=== PATIENT | female | born 1965 | race Two or more races ===

== ENCOUNTER 2024-01-31 19:37 | Emergency (ER) | payer MEDICAID, OTHER ==
[~2024-01-31] VITALS: Ht 152.4 cm; Wt 76.8 kg
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
[2024-01-31 20:59] VITALS: PULSE 69; RESP 18; TEMP 97.9; O2SAT 96
[2024-01-31] MEDS: KETOROLAC TROMETH 30 MG/ML 1ML VIAL IM ONE (21:02)
[2024-01-31] MEDS ORDERED: IBUP-1455 PO (22:12)
[2024-01-31] MEDS ORDERED: CYCL-837 PO (22:12)
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
[2024-01-31 23:12] VITALS: BP 123/59; PULSE 72; RESP 18; O2SAT 98
== END 2024-01-31 23:18 | disposition home or self-care (01) ==
LOC: ER 19:37
DX: S82.891A Other fracture of right lower leg, initial encounter for closed fracture (principal); S13.4XXA Sprain of ligaments of cervical spine, initial encounter; S20.219A Contusion of unspecified front wall of thorax, initial encounter; Z88.0 Allergy status to penicillin; V49.88XA Car occupant (driver) (passenger) injured in other specified transport accidents, initial encounter; Y93.I9 Activity, other involving external motion; Y92.488 Other paved roadways as the place of occurrence of the external cause; Y99.8 Other external cause status
CPT/HCPCS: 71045; 73562; 73610; 96372; 99284; J1885

== ENCOUNTER 2024-06-08 11:23 | Inpatient (IN) | payer MEDICAID ==
[~2024-06-08] VITALS: Ht 152.4 cm; Wt 86.3 kg
[~2024-06-08 11:23] MED LIST: CYCL-837 PO; IBUP-1455 PO
--- NOTE | 2024-06-08 11:51 | ED.PDOC ---
HPI Comments HPI: 59 year old female presents to the ED with chief complaint of chest pain. Patient reports that she has been experiencing left sided chest pain since yesterday, worsening today along with associated nausea, constant left arm numbness, and intermittent left leg numbness also since today. Patient relays that she started to feel her symptoms at 1042 today when walking her dog at home without a walker, normally needing one due to having chronic dizziness for the past 4 years when walking without a walker. Patient denies any SOB, weakness, headache, vomiting, or abdominal pain. Vitals: Temp: 98.7F BP: HR: RR: spO2: Past Medical History: Denies Past Surgical History: Abdominal cyst removal Social History: Denies cigarette, ETOH, or drug use. Allergies: Penicillins REVIEW OF SYSTEMS: CONSTITUTIONAL: Denies acute: fever, diaphoresis, chills, generalized weakness. HEAD: Denies acute: headache, photophobia Eyes: Denies acute: Double vision, vision loss, eye pain, eye discharge. EARS: Denies acute: tinnitus, hearing loss, ear discharge, ear pain, THROAT: Denies acute: sore throat, swelling, difficulty swallowing , pain with swallowing, change in voice. NECK: Denies acute: neck pain, neck swelling, stiff neck. HEART: Denies acute : , palpitations, LUNGS: Denies acute: SOB, wheezing, cough, hemoptysis ABDOMEN: Denies acute: abdominal pain, Nausea, Vomiting, diarrhea, melena , hematemesis, hematochezia SKIN: Denies acute: rash, redness, lesions, itchiness. EXTREMITIES: Denies acute: calf pain, weakness, denies pain in extremity. Denies acute: Low back pain. Neuro: Denies acute: focal neurological deficit, motor or sensory focal neurological deficit, tremors, seizure like activity, confusion, dizziness, change in mental status, loss of bowel or bladder function, cauda equina like symptoms. : Denies acute: dysuria, hematuria, flank pain, increase in urinary frequency. PSYCH: Denies acute: hallucination, suicidal ideation, homicidal ideation. FEMALE: Denies acute: abnormal vaginal bleeding, foul odor, unusual discharge. PHYSICAL EXAM: General: no acute distress, awake and alert. Head: normocephalic, atraumatic. Neck: supple, trachea is midline, no swelling. Throat: Normal phonation. Eyes:, no erythema, no purulent discharge, no proptosis, no icterus. Heart: regular rate, regular rhythm, no significant murmur appreciated. Lungs: no apparent respiratory distress, Able to speak in full sentences. No wheezing, no rhonchi, no crackles. No stridors Clear to auscultation bilaterally. Abdomen: non tender to palpation, non distended, soft, no guarding, no rebound, + bowel sounds. Neuro: Awake, Alert, oriented to name, self, situation, follows commands GCS=15. Speech is normal. Skin: no petechia, no purpura, no cyanosis, non-pale, not jaundice. Lower extremities: --no - Pitting edema no deformity, no focal swelling, no calf TTP. Makes eye contact. moves all four extremities. Face: no apparent facial droop. Ambulating in the ED independently. Stroke: finger to nose cerebellar testing is intact. No pronator drift. 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 No nystagmus. No nuchal rigidity, Kernig's sign, Brudzinski's sign, no meningeal signs. ED COURSE: Chief Complaint: Chest Pain Time Seen by MD: 11:47 Reviewed Notes: Nurses Notes, Medications, Allergies Allergies: Coded Allergies: Penicillins (Verified Allergy, Unknown, 01/31/24) Information Source: Patient Mode of Arrival: Ambulatory Was a procedure done? Was a procedure done?: No CP Differential Dx Differential Diagnosis: N/A Differential Diagnosis: N/A Differential Diagnosis: Other (Ddx include but not limitied to gastritis, musculoskeletal pain, radiculopathy, atypical chest pain, dissection, aneurysm, ACS, unstable angina, hiatal hernia, GERD, anxiety, costochondritis, PE, pneumothroax, neoplasm, cardiac ischemia, drug abuse, anemia.) X-Ray, Labs, Meds, VS Vital Signs Date Time Temp Pulse Resp B/P (MAP) Pulse Ox O2 Delivery O2 Flow Rate FiO2 06/08/24 12:35 143/71 06/08/24 12:24 71 06/08/24 12:20 71 Room Air* 0 21 06/08/24 12:20 98.2 71 17 143/71 (95) 97 98.2 06/08/24 11:52 98.7 77 17 148/83 (104) 97 98.7 06/08/24 11:31 84 Lab Test 06/08/24 12:28 06/08/24 11:36 Range/Units Troponin I High Sensitivity < 3 L < 3 L </=34 ng/L White Blood Count 5.5 4.4-10.8 10^3/uL Red Blood Count 4.29 4.0-5.20 10^6/uL Hemoglobin 14.1 12.2-16.2 g/dL Hematocrit 40.1 36.0-46.0 % Mean Corpuscular Volume 93.3 80.0-100.0 fL Mean Corpuscular Hemoglobin 32.7 H 28.0-32.0 pg Mean Corpuscular Hemoglobin Concent 35.1 32.0-36.0 g/dL Red Cell Distribution Width 12.5 11.8-14.3 % Platelet Count 228 140-450 10^3/uL Mean Platelet Volume 8.0 6.9-10.8 fL Neutrophils (%) (Auto) 58.9 37.0-80.0 % Lymphocytes (%) (Auto) 31.5 10.0-50.0 % Monocytes (%) (Auto) 7.1 0.0-12.0 % Eosinophils (%) (Auto) 1.4 0.0-7.0 % Basophils (%) (Auto) 1.1 0.0-2.0 % Neutrophils # (Auto) 3.2 1.6-8.6 10 ^3/uL Lymphocytes # (Auto) 1.7 0.4-5.4 10 ^3/uL Monocytes # (Auto) 0.4 0-1.3 10 ^3/uL Eosinophils # (Auto) 0.1 0-0.8 10 ^3/uL Basophils # (Auto) 0.1 0-0.2 10 ^3/uL Nucleated Red Blood Cells 0.0 % Sodium Level 138 136-145 mmol/L Potassium Level 4.0 3.5-5.1 mmol/L Chloride Level 103 98-107 mmol/L Carbon Dioxide Level 25 20-31 mmol/L Anion Gap 10 5-15 Blood Urea Nitrogen 11 9-23 mg/dL Creatinine 0.91 0.550-1.02 mg/dL Glomerular Filtration Rate Calc 72 >90 mL/min BUN/Creatinine Ratio 12.1 10.0-20.0 Serum Glucose 109 H 74-106 mg/dL Calcium Level 9.7 8.7-10.4 mg/dL Total Bilirubin 0.9 0.2-1.0 mg/dL Aspartate Amino Transferase (AST) 24 13-40 U/L Alanine Aminotransferase (ALT) 27 7-40 U/L Alkaline Phosphatase 77 46-116 U/L B-Type Natriuretic Peptide 14.72 0-100 pg/mL Total Protein 8.3 H 5.7-8.2 g/dL Albumin 4.6 3.2-4.8 g/dL Triglycerides Level 146 < 150 mg/dL Cholesterol Level 210 H < 200 mg/dL LDL Cholesterol 151 H < 100 mg/dL HDL Cholesterol 54 40-59 mg/dL Thyroid Stimulating Hormone (TSH) 1.96 0.55-4.78 uIU/mL Current Medications Medications (Trade) Dose Ordered Sig/Jaclyn Route Start Time Stop Time Status Last Admin Aspirin (Ecotrin Enteric Coated Tablet) 325 mg ONCE ONCE PO 06/08/24 11:45 06/08/24 11:46 DC 06/08/24 11:52 Nitroglycerin (Ntrostat Sublingual) 0.4 mg ONCE ONCE SL 06/08/24 12:30 06/08/24 12:31 DC 06/08/24 12:35 [place] [id number] Ph: [phone] DIAGNOSTIC IMAGING Diagnostic Imaging Report : [id number] Signed PATIENT: DEB RUBIOCT: [id number] UNIT: [id number] : 1965 LOC: ER ROOM / BED: / AGE / SEX: 59 / F ADM STATUS: REG ER SERVICE 1136 ORDERING PHYSICIAN: JENELLE AMOS DO PROCEDURE(s): CXRP - CHEST PORTABLE REASON: cp ORDER NUMBER(s): [id number], ACCESSION NUMBER(s): [id number] CHEST RADIOGRAPH Indication: cp Technique: Single frontal view of the chest was obtained COMPARISON: XY CHEST XRAY 1 VIEW on DOS: 01/31/24 FINDINGS: Lines and Tubes: None Lungs: Clear Pleura: No effusion. No pneumothorax. Cardiomediastinal contours: Unremarkable Bones: Unremarkable IMPRESSION: 1. No acute disease. ATED BY: MIHAELA CARTER MD DICTATED DATE/TIME: 06/08/241207 SIGNED BY: MIHAELA CARTER MD SIGNED DATE/TIME: 06/08/241207 CC: [place] [id number] Ph: [phone] DIAGNOSTIC IMAGING Diagnostic Imaging Report : [id number] Signed PATIENT: DEB RUBIOCT: [id number] UNIT: [id number] : 1965 LOC: ER ROOM / BED: / AGE / SEX: 59 / F ADM STATUS: REG ER SERVICE 1147 ORDERING PHYSICIAN: JENELLE AMOS DO PROCEDURE(s): HWOCT - HEAD WITHOUT CONTRAST REASON: dizziness ORDER NUMBER(s): [id number], ACCESSION NUMBER(s): [id number] EXAM: CT HEAD WITHOUT CONTRAST HISTORY: dizziness COMPARISON: None TECHNIQUE: Axial images were obtained and reformatted in coronal and sagittal planes. All CT scans at this medical facility are performed using dose modulation techniques as appropriate to a performed exam including the following: Automated exposure control was utilized; adjustment of the MA and/or KV according to patient size; and use of iterative reconstruction technique. CT Dose: CTDI volume is 54 mGy. Dose-length product is 864 mGy*cm FINDINGS: Supratentorial Region: No evidence for large acute territorial ischemia. No intracranial hemorrhage is noted. Posterior Fossa: No acute abnormality. Brainstem: Unremarkable. Sellar/Suprasellar Region: Unremarkable. Ventricles, Cisterns, Sulci: Age-appropriate. Orbits: Unremarkable. Paranasal Sinuses: Unremarkable. Mastoid Air Cells: Unremarkable. Vasculature: Unremarkable. Bones/Soft Tissues: No acute abnormality. Other: None. IMPRESSION: 1. No acute intracranial process. ATED BY: GAYATHRI LOPEZ MD DICTATED DATE/TIME: 06/08/24 1324 SIGNED BY: GAYATHRI LOPEZ MD SIGNED DATE/TIME: 06/08/24 1324 CC: Time of 1ST Reevaluation: 12:47 Reevaluation 1ST: Unchanged Time of 2ND Reevaluation: 17:36 Reevaluation 2ND: Resolved Patient Education/Counseling: Diagnosis, Treatment Family Education/Counseling: No Family Present Comments Patient presented with the above HPI.--cardiac---workup was initiated. patient was found with the above mentioned diagnosis. the following medications were ordered: please refer to order lists of meds and tests obtained by myself Dr. Amos. Patient ED course and VS have been stabilized. Patient has been reassessed in the ED and remained in a stable condition. Pertinent incidental findings were discussed with the patient and/or family. Patient/family voices understanding and is agreeable with plan. Patient has been observed in the ED adequate length of time to insure improvement/stability. Escalation of care considered: Consideration of escalation to observation or admission Patient was ADMITTED to the medicine team for further evaluation and treatment of their presentation. All the reports of any imaging studies that were ordered by myself were reviewed by myself. Departure 1 Departure Time of Disposition: 11:58 Impression: Primary Impression: Chest pain Disposition: ADMITTED INPATIENT Admit to: Tele Condition: Guarded Discharged With: Self Critical Care Note Critical Care Time?: No Heart Score Heart Score: Heart Score Response (Comments) Value History Moderate Suspicious 1 EKG Normal 0 Age 45-64 1 Risk Factors 1 or 2 risk factors 1 Troponin Normal limit 0 Total 3 I personally scribed for JENELLE AMOS DO ([email or web address]) on 06/08/24 at 11:51. Electronically submitted by Jacky Veliz ([email or web address]). I personally scribed for JENELLE AMOS DO ([email or web address]) on 06/08/24 at 11:58. Electronically submitted by Jacky Veliz ([email or web address]). I personally scribed for JENELLE AMOS DO ([email or web address]) on 06/08/24 at 13:27. Electronically submitted by Jacky Veliz ([email or web address]). I personally scribed for JENELLE AMOS DO ([email or web address]) on 06/08/24 at 13:27. Electronically submitted by Jacky Veliz ([email or web address]). JENELLE AMOS DO Jun 08, 2024 11:51
[2024-06-08] MEDS: ASPirin-EC 325mg tab PO ONE (11:52)
--- NOTE | 2024-06-08 12:10 | DVH ---
CHEST RADIOGRAPH Indication: cp Technique: Single frontal view of the chest was obtained COMPARISON: XY CHEST XRAY 1 VIEW on DOS: 01/31/24 FINDINGS: Lines and Tubes: None Lungs: Clear Pleura: No effusion. No pneumothorax. Cardiomediastinal contours: Unremarkable Bones: Unremarkable IMPRESSION: 1. No acute disease.
[2024-06-08 12:16] LABS: Basophils # (auto) 0.1 10 ^3/uL (0-0.2); Basophils % (auto) 1.1 % (0.0-2.0); Eosinophils # (auto) 0.1 10 ^3/uL (0-0.8); Eosinophils % (auto) 1.4 % (0.0-7.0); Hematocrit 40.1 % (36.0-46.0); Hemoglobin 14.1 g/dL (12.2-16.2); Lymphocytes # (auto) 1.7 10 ^3/uL (0.4-5.4); Lymphocytes % (auto) 31.5 % (10.0-50.0); Mean Corpuscular Hemoglobin 32.7 pg (28.0-32.0); Mean Corpuscular Hgb Conc. 35.1 g/dL (32.0-36.0); Mean Corpuscular Volume 93.3 fL (80.0-100.0); Monocytes # (auto) 0.4 10 ^3/uL (0-1.3); Monocytes % (auto) 7.1 % (0.0-12.0); Neutrophils # (auto) 3.2 10 ^3/uL (1.6-8.6); Neutrophils % (auto) 58.9 % (37.0-80.0); Platelet Count (auto) 228 10^3/uL (140-450); Red Blood Cells 4.29 10^6/uL (4.0-5.20); Red Cell Distribution Width 12.5 % (11.8-14.3); White Blood Cell 5.5 10^3/uL (4.4-10.8)
[2024-06-08 12:20] VITALS: PULSE 71
[2024-06-08 12:31] LABS: Alanine Aminotransferase 27 U/L (7-40); Albumin 4.6 g/dL (3.2-4.8); Alkaline Phosphatase 77 U/L (46-116); Anion Gap 10 (5-15); Aspartate Aminotransferase 24 U/L (13-40); BUN/Creatinine Ratio 12.1 (10.0-20.0); Bilirubin, Total 0.9 mg/dL (0.2-1.0); Blood Urea Nitrogen 11 mg/dL (9-23); Calcium 9.7 mg/dL (8.7-10.4); Carbon Dioxide 25 mmol/L (20-31); Chloride 103 mmol/L (98-107); Sodium 138 mmol/L (136-145)
[2024-06-08] MEDS: NITROGLYCERIN 0.4 MG SL TAB SL ONE (12:35)
[2024-06-08 12:37] LABS: Glucose 109 mg/dL (74-106); Total Protein 8.3 g/dL (5.7-8.2)
--- NOTE | 2024-06-08 13:26 | DVH ---
EXAM: CT HEAD WITHOUT CONTRAST HISTORY: dizziness COMPARISON: None TECHNIQUE: Axial images were obtained and reformatted in coronal and sagittal planes. All CT scans at this medical facility are performed using dose modulation techniques as appropriate t o a performed exam including the following: Automated exposure control was utilized; adjustment of th e MA and/or KV according to patient size; and use of iterative reconstruction technique. CT Dose: CTDI volume is 54 mGy. Dose-length product is 864 mGy*cm FINDINGS: Supratentorial Region: No evidence for large acute territorial ischemia. No intracranial hemorrhage is noted. Posterior Fossa: No acute abnormality. Brainstem: Unremarkable. Sellar/Suprasellar Region: Unremarkable. Ventricles, Cisterns, Sulci: Age-appropriate. Orbits: Unremarkable. Paranasal Sinuses: Unremarkable. Mastoid Air Cells: Unremarkable. Vasculature: Unremarkable. Bones/Soft Tissues: No acute abnormality. Other: None. IMPRESSION: 1. No acute intracranial process.
[2024-06-08] MEDS ORDERED: ACETAMINOPHEN 325 MG TAB PO PRN (13:30)
[2024-06-08] MEDS ORDERED: NITROGLYCERIN 0.4 MG SL TAB SL PRN (13:30)
[2024-06-08] MEDS ORDERED: HYDROcodone-ACET 5/325MG TAB PO PRN (13:30)
[2024-06-08] MEDS ORDERED: ONDANSETRON HCL 4 MG/2 ML VIAL IV PRN (13:30)
[2024-06-08] MEDS ORDERED: MORPHINE SULFATE INJ 2 MG/ml SYRG IV PRN (13:30)
--- NOTE | 2024-06-08 14:08 | DVH ---
Bilateral lower extremity venous duplex Clinical History: r/o dvt Comparison: None Technique: Duplex Doppler evaluation of the deep venous systems of both lower extremities from the common femora l veins to the popliteal veins including color Doppler and spectral/pulsed waveform analysis was perf ormed. Findings: RIGHT SIDE: The common femoral vein demonstrates appropriate compressibility and waveform variability. There is compressibility/patency of the great saphenous vein at the proximal thigh. The femoral vein demonstrates appropriate compressibility and waveform variability. The deep femoral vein demonstrates appropriate compressibility and waveform variability. The popliteal vein demonstrates appropriate compressibility and waveform variability. There is normal compressibility at the tibioperoneal trunk. LEFT SIDE: The common femoral vein demonstrates appropriate compressibility and waveform variability. There is compressibility/patency of the great saphenous vein at the proximal thigh. The femoral vein demonstrates appropriate compressibility and waveform variability. The deep femoral vein demonstrates appropriate compressibility and waveform variability. The popliteal vein demonstrates appropriate compressibility and waveform variability. There is normal compressibility at the tibioperoneal trunk. Impression: 1. No right or left femoropopliteal venous thrombosis.
--- NOTE | 2024-06-08 14:22 | DVHHP2 ---
History of Present Illness Reason for Visit: Chest pain History of Present Illness Carlos Hardy is a 59-year-old female with past medical history of gastritis, arthritis, fibromyalgia, chronic dizziness, and abdominal cyst removal who presents to the ED with chest pain that is radiating down her left arm patient also states that it radiates down her left leg causing some numbness. She also reports nausea. She states her pain is 3/10 feels tight and it is intermittent in nature. Patient denies any recent sick contacts any shortness of breath, fever, chills, recent trauma or injury, lightheadedness, vomiting, and diarrhea. Upon examination patient using a Rollator with ambulation. GI: Gastritis Past Medical History Arthritis Fibromyalgia Past Surgical History: Other (Abdominal cyst removal) Family History: None Smoke: No ALCOHOL: none Drugs: None Lives: with Family Domestic Violence: Neg Review of Systems Cardiovascular: Chest Pain Gastrointestinal: Nausea Musculoskeletal: arm pain, leg pain Allergies: Coded Allergies: Penicillins (Verified Allergy, Unknown, 01/31/24) Medications Current Medications Medications Dose Ordered Sig/Jaclyn Route Start Time Stop Time Status Last Admin Dose Admin Acetaminophen/ Hydrocodone Bitart 1 tab Q4HP PRN PO 06/08/24 13:30 UNV Ondansetron HCl 4 mg Q4HP PRN IV 06/08/24 13:30 UNV Enoxaparin Sodium 30 mg DAILY SC 06/09/24 10:00 UNV Acetaminophen 650 mg Q6HP PRN PO 06/08/24 13:30 UNV Nitroglycerin 0.4 mg Q5MINP PRN SL 06/08/24 13:30 UNV Morphine Sulfate 2 mg Q30M PRN IV 06/08/24 13:30 UNV Exam Vital Signs Vital Signs Date Time Temp Pulse Resp B/P (MAP) Pulse Ox O2 Delivery O2 Flow Rate FiO2 06/08/24 12:35 143/71 06/08/24 12:24 71 06/08/24 12:20 Room Air* 0 21 06/08/24 12:20 98.2 17 97 98.2 General Appearance: Alert, Oriented X3, Cooperative, No acute distress HEENT: Atraumatic, PERRLA, EOMI, Mucous membr. moist/pink Respiratory: Clear to auscultation, Normal air movement Cardiovascular: Regular rate, Normal S1, Normal S2, No murmurs Abdominal: Normal bowel sounds, Soft, No tenderness, No hepatospenomegaly, No masses Extremities: No cyanosis, No edema, Normal pulses Skin: No significant lesion Neuro: Normal speech, Normal tone, Sensation intact Psych/Mental Status: Mental status NL, Mood NL Labs/Xrays Labs Test 06/08/24 12:28 06/08/24 11:36 Range/Units Troponin I High Sensitivity < 3 L </=34 ng/L White Blood Count 5.5 4.4-10.8 10^3/uL Red Blood Count 4.29 4.0-5.20 10^6/uL Hemoglobin 14.1 12.2-16.2 g/dL Hematocrit 40.1 36.0-46.0 % Mean Corpuscular Volume 93.3 80.0-100.0 fL Mean Corpuscular Hemoglobin 32.7 H 28.0-32.0 pg Mean Corpuscular Hemoglobin Concent 35.1 32.0-36.0 g/dL Red Cell Distribution Width 12.5 11.8-14.3 % Platelet Count 228 140-450 10^3/uL Mean Platelet Volume 8.0 6.9-10.8 fL Neutrophils (%) (Auto) 58.9 37.0-80.0 % Lymphocytes (%) (Auto) 31.5 10.0-50.0 % Monocytes (%) (Auto) 7.1 0.0-12.0 % Eosinophils (%) (Auto) 1.4 0.0-7.0 % Basophils (%) (Auto) 1.1 0.0-2.0 % Neutrophils # (Auto) 3.2 1.6-8.6 10 ^3/uL Lymphocytes # (Auto) 1.7 0.4-5.4 10 ^3/uL Monocytes # (Auto) 0.4 0-1.3 10 ^3/uL Eosinophils # (Auto) 0.1 0-0.8 10 ^3/uL Basophils # (Auto) 0.1 0-0.2 10 ^3/uL Nucleated Red Blood Cells 0.0 % Sodium Level 138 136-145 mmol/L Potassium Level 4.0 3.5-5.1 mmol/L Chloride Level 103 98-107 mmol/L Carbon Dioxide Level 25 20-31 mmol/L Anion Gap 10 5-15 Blood Urea Nitrogen 11 9-23 mg/dL Creatinine 0.91 0.550-1.02 mg/dL Glomerular Filtration Rate Calc 72 >90 mL/min BUN/Creatinine Ratio 12.1 10.0-20.0 Serum Glucose 109 H 74-106 mg/dL Calcium Level 9.7 8.7-10.4 mg/dL Total Bilirubin 0.9 0.2-1.0 mg/dL Aspartate Amino Transferase (AST) 24 13-40 U/L Alanine Aminotransferase (ALT) 27 7-40 U/L Alkaline Phosphatase 77 46-116 U/L B-Type Natriuretic Peptide 14.72 0-100 pg/mL Total Protein 8.3 H 5.7-8.2 g/dL Albumin 4.6 3.2-4.8 g/dL CHEST RADIOGRAPH Indication: cp Technique: Single frontal view of the chest was obtained COMPARISON: XY CHEST XRAY 1 VIEW on DOS: 01/31/24 FINDINGS: Lines and Tubes: None Lungs: Clear Pleura: No effusion. No pneumothorax. Cardiomediastinal contours: Unremarkable Bones: Unremarkable IMPRESSION: 1. No acute disease. EXAM: CT HEAD WITHOUT CONTRAST HISTORY: dizziness COMPARISON: None TECHNIQUE: Axial images were obtained and reformatted in coronal and sagittal planes. All CT scans at this medical facility are performed using dose modulation techniques as appropriate to a performed exam including the following: Automated exposure control was utilized; adjustment of the MA and/or KV according to patient size; and use of iterative reconstruction technique. CT Dose: CTDI volume is 54 mGy. Dose-length product is 864 mGy*cm FINDINGS: Supratentorial Region: No evidence for large acute territorial ischemia. No intracranial hemorrhage is noted. Posterior Fossa: No acute abnormality. Brainstem: Unremarkable. Sellar/Suprasellar Region: Unremarkable. Ventricles, Cisterns, Sulci: Age-appropriate. Orbits: Unremarkable. Paranasal Sinuses: Unremarkable. Mastoid Air Cells: Unremarkable. Vasculature: Unremarkable. Bones/Soft Tissues: No acute abnormality. Other: None. IMPRESSION: 1. No acute intracranial process. Bilateral lower extremity venous duplex Clinical History: r/o dvt Comparison: None Technique: Duplex Doppler evaluation of the deep venous systems of both lower extremities from the common femoral veins to the popliteal veins including color Doppler and spectral/pulsed waveform analysis was performed. Findings: RIGHT SIDE: The common femoral vein demonstrates appropriate compressibility and waveform variability. There is compressibility/patency of the great saphenous vein at the proximal thigh. The femoral vein demonstrates appropriate compressibility and waveform variability. The deep femoral vein demonstrates appropriate compressibility and waveform variability. The popliteal vein demonstrates appropriate compressibility and waveform variability. There is normal compressibility at the tibioperoneal trunk. LEFT SIDE: The common femoral vein demonstrates appropriate compressibility and waveform variability. There is compressibility/patency of the great saphenous vein at the proximal thigh. The femoral vein demonstrates appropriate compressibility and waveform variability. The deep femoral vein demonstrates appropriate compressibility and waveform variability. The popliteal vein demonstrates appropriate compressibility and waveform variability. There is normal compressibility at the tibioperoneal trunk. Impression: 1. No right or left femoropopliteal venous thrombosis. Assessment/Plan Assessment/Plan Assessment Chest pain History of gastritis History of arthritis History of fibromyalgia History abdominal cyst removal History of chronic dizziness Plan Admit to tele EKG Tried nitro given ED Aspirin given ED CT head noted Chest x-ray noted BNP Troponin negative UA UDS TSH A1c Lipid panel Echo ordered Bilateral lower extremity venous ordered ACS workup ACS protocol Diet PPIs Patient reports she takes no home medications Discussed plan of care with patient and nurse DVT prophylaxis -Lovenox Plan discussed with: Patient My Orders Orders - RASHAD SWAN HEALTH ASSISTANT Procedure Category Date Status Time Bilat Lower Dvt US 06/08/24 Logged 13:27 Admit ADMIT 06/08/24 Transmitted 13:27 Allergies SARA 06/08/24 In Process 13:27 Code Status CODE 06/08/24 Transmitted 13:27 Hydrocodone-Acet PHA 06/08/24 Logged 5/325mg Tab ([place] 13:30 Ondansetron Hcl PHA 06/08/24 Logged (Zofran) 13:30 Complete Blood Count LAB 06/09/24 Verified 04:00 Comprehensive LAB 06/09/24 Verified Metabolic Panel 04:00 Cardiac DIET 06/08/24 Transmitted Diet-2gna,Lofat,Lochol Lunch Echo 2d Mode Cardiac US 06/08/24 Logged DOP 13:27 Enoxaparin Sodium PHA 06/09/24 Logged (Lovenox) 10:00 Acetaminophen Tablet PHA 06/08/24 Logged (Tylenol Tablet) 13:30 Nitroglycerin PHA 06/08/24 Logged Sublingual (Ntrostat 13:30 Morphine Sulfate PHA 06/08/24 Logged Injection 13:30 Stat Ekg For Chest [facility] 06/08/24 In Process Pain 13:27 Notify Md Of Changes [facility] 06/08/24 In Process From Base 13:27 Plating Stripper For [facility] 06/08/24 In Process 24 Hours 13:27 Emergency Dysrhythmia [facility] 06/08/24 In Process Protocol 13:27 Rhythm Strips Once SARA 06/08/24 In Process Every Shift 13:27 Oxygen By Nasal RT 06/08/24 Transmitted Cannula 13:27 Thyroid Stimulating LAB 06/08/24 Logged Hormone 13:27 Urinalysis LAB 06/08/24 Logged 13:27 Drug Screen LAB 06/08/24 Logged 13:27 Hemoglobin A1c LAB 06/08/24 Logged 13:27 Lipid Panel LAB 06/08/24 Logged 13:36 Date of Service: Jun 08, 2024 Billing Provider: RASHAD SWAN Common Visit Codes: [id number] INP/OBS CARE (HIGH) RASHAD SWAN Jun 08, 2024 14:22
[2024-06-08 14:40] LABS: Triglycerides 146 mg/dL (< 150)
[2024-06-08 14:42] LABS: HDL Cholesterol 54 mg/dL (40-59)
[2024-06-08 14:46] LABS: Cholesterol 210 mg/dL (< 200); LDL Cholesterol 151 mg/dL (< 100)
[2024-06-08 18:40] VITALS: PULSE 62; RESP 18; O2SAT 97
[2024-06-08 19:47] LABS: Urine Bacteria None Seen /hpf (None Seen)
[2024-06-08 20:00] VITALS: PULSE 60; RESP 14; O2SAT 96
[2024-06-08 20:05] LABS: Urine Blood 2+ /uL (Negative); Urine Clarity Clear (Clear); Urine Color Yellow (Yellow); Urine Mucus FEW (None Seen); Urine Protein, UAD Negative (Negative); Urine Specific Gravity 1.023 (1.001-1.035); Urine Squamous Epithelial Cell None Seen /hpf (<5); Urine Urobilinogen Normal (Negative); Urine WBC 4 /HPF (0-5); Urine pH 5.5 (5.0-9.0)
[2024-06-08 20:06] LABS: Amphetamine Screen, Urine Neg (NEGATIVE); Barbiturate Scree,Urine Neg (NEGATIVE); Benzodiazephine Screen, Urine Neg (NEGATIVE); Cannabinoid Screen, Urine Neg (NEGATIVE); Cocaine Screen, Urine Neg (NEGATIVE); Opiate Scree,Urine Neg (NEGATIVE); Phencyclidine Screen, Urine Neg (NEGATIVE)
[2024-06-08 21:00] VITALS: BP 129/71; PULSE 63; RESP 12; TEMP 98.2; O2SAT 96
[2024-06-08] MEDS: ATORVASTATIN 20 MG TAB PO SCH (21:28)
[2024-06-09] VITALS (8 sets, daily range): BP systolic 117–137; BP diastolic 52–76; PULSE 55–73; RESP 15–20; TEMP 97.3–98.1; O2SAT 95–98
--- NOTE | 2024-06-09 06:20 | ECG ---
[facility] Test Date: 2024-06-08 Test Time: 12:24:06 Pat Name: SAMANTHA RUBIO Department: ED Room: 0246T B Gender: F Administration Manager: DOUGLAS : 1965 Requested By: EMERGENCY EMERGENCY Order Number: [id number] Reading MD: Tony Cespedes Measurements Intervals [place] Rate: 71 P: 38 RI: 151 QRS: 64 QRSD: 85 T: 33 QT: 402 QTc: 437 Interpretive Statements Sinus rhythm Electronically Signed On 06-09-2024 19:20:04 PDT by Tony Cespedes Please click the below link to view image of tracing.
[2024-06-09 07:25] LABS: Basophils # (auto) 0 10 ^3/uL (0-0.2); Basophils % (auto) 0.9 % (0.0-2.0); Eosinophils # (auto) 0.1 10 ^3/uL (0-0.8); Eosinophils % (auto) 2.7 % (0.0-7.0); Hematocrit 39.2 % (36.0-46.0); Hemoglobin 13.3 g/dL (12.2-16.2); Lymphocytes # (auto) 1.5 10 ^3/uL (0.4-5.4); Lymphocytes % (auto) 28.7 % (10.0-50.0); Mean Corpuscular Hemoglobin 31.8 pg (28.0-32.0); Mean Corpuscular Volume 93.6 fL (80.0-100.0); Monocytes # (auto) 0.5 10 ^3/uL (0-1.3); Neutrophils % (auto) 58.7 % (37.0-80.0); Nucleated Red Blood Cells % 0.1 %; Platelet Count (auto) 204 10^3/uL (140-450); Red Blood Cells 4.19 10^6/uL (4.0-5.20); Red Cell Distribution Width 12.2 % (11.8-14.3); White Blood Cell 5.2 10^3/uL (4.4-10.8)
--- NOTE | 2024-06-09 07:38 | ECG ---
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
[2024-06-09 07:48] LABS: Alanine Aminotransferase 22 U/L (7-40); Albumin 4.2 g/dL (3.2-4.8); Alkaline Phosphatase 65 U/L (46-116); Anion Gap 9 (5-15); Aspartate Aminotransferase 21 U/L (13-40); BUN/Creatinine Ratio 13.9 (10.0-20.0); Bilirubin, Total 0.8 mg/dL (0.2-1.0); Blood Urea Nitrogen 11 mg/dL (9-23); Calcium 9.5 mg/dL (8.7-10.4); Carbon Dioxide 25 mmol/L (20-31); Chloride 105 mmol/L (98-107); Potassium 4.2 mmol/L (3.5-5.1); Sodium 139 mmol/L (136-145); Total Protein 7.4 g/dL (5.7-8.2)
[2024-06-09 07:49] LABS: Glucose 120 mg/dL (74-106)
[2024-06-09] MEDS: PANTOPRAZOLE 40 MG/10 ML VIAL INJ IV SCH (10:45)
[2024-06-09] MEDS: ENOXAPARIN SOD 40 MG/0.4 ML SYRINGE SC SCH (10:47)
[2024-06-09] MEDS: ASPirin-EC 81 mg tab PO SCH (10:47)
--- NOTE | 2024-06-09 12:55 | DVHPN2 ---
Reviewed: Care Plan, H&P, Labs, Medications, Previous Orders, Radiology Changes from previous H/P or p: No Changes Cardiovascular: Chest Pain Gastrointestinal: Nausea Musculoskeletal: arm pain, leg pain Objective Vitals Vital Signs Date Time Temp Pulse Resp B/P (MAP) Pulse Ox O2 Delivery O2 Flow Rate FiO2 06/09/24 12:17 98.0 63 19 117/60 (79) 98 98.0 06/08/24 20:00 Room Air* 0 21 Intake/Output Intake and Output 06/09/24 07:00 Intake Total 985 ml Output Total 600 ml Balance 385 ml Intake Oral 985 ml Output Urine Total 600 ml # Voids 3 Medications Current Medications Medications Dose Ordered Sig/Jaclyn Route Start Time Stop Time Status Last Admin Dose Admin Acetaminophen/ Hydrocodone Bitart 1 tab Q4HP PRN PO 06/08/24 13:30 Ondansetron HCl 4 mg Q4HP PRN IV 06/08/24 13:30 Enoxaparin Sodium 40 mg DAILY SC 06/09/24 10:00 06/09/24 10:47 40 MG Acetaminophen 650 mg Q6HP PRN PO 06/08/24 13:30 Nitroglycerin 0.4 mg Q5MINP PRN SL 06/08/24 13:30 Morphine Sulfate 2 mg Q30M PRN IV 06/08/24 13:30 Pantoprazole Sodium 40 mg DAILY IV 06/09/24 10:00 06/09/24 10:45 40 MG Aspirin 81 mg DAILY PO 06/09/24 10:00 06/09/24 10:47 81 MG Atorvastatin Calcium 40 mg HS PO 06/08/24 22:00 06/08/24 21:28 40 MG Laboratory Results Laboratory Tests 06/09/24 06:46 Chemistry Test 06/09/24 06:46 Albumin 4.2 g/dL (3.2-4.8) Calcium Level 9.5 mg/dL (8.7-10.4) Total Protein 7.4 g/dL (5.7-8.2) LFT Test 06/09/24 06:46 Alanine Aminotransferase (ALT) 22 U/L (7-40) Alkaline Phosphatase 65 U/L (46-116) Aspartate Amino Transferase (AST) 21 U/L (13-40) Total Bilirubin 0.8 mg/dL (0.2-1.0) HgA1c, TSH Test 06/08/24 16:48 Hemoglobin A1c 5.3 % A1C (<5.7) Urinalysis Test 06/08/24 19:40 Urine Color Yellow (Yellow) Urine Clarity Clear (Clear) Urine pH 5.5 (5.0-9.0) Urine Specific [place] 1.023 (1.001-1.035) Urine Protein Negative (Negative) Urine Ketones Negative (Negative) Urine Blood 2+ /uL (Negative) H Urine Nitrite Negative (Negative) Urine Bilirubin Negative (Negative) Urine Urobilinogen Normal mg/dL (Negative) Urine Leukocyte Esterase 1+ /uL (Negative) Urine RBC 8 /hpf (0 - 4) Urine Microscopic WBC 4 /HPF (0-5) Urine Squamous Epithelial Cells None seen /hpf (<5) Urine Bacteria None seen /hpf (None Seen) Urine Mucus Few (None Seen) Urine Glucose Normal mg/dL (Normal) Labs and/or images reviewed: Labs reviewed by me, Image(s) reviewed by me Assessment/Plan Assessment/Plan Chest pain troponin negative x3, probably noncardiac chest pain, cardiology consult for Dr. Ramos, aspirin Lipitor History of gastritis History of arthritis History of fibromyalgia Chest x-ray negative CT head negative DVT ruled out Plan discussed with: Patient Date of Service: Jun 09, 2024 Billing Provider: SAM GALINDO MD Common Visit Codes: [id number] INP/OBS CARE(HIGH) SAM GALINDO MD Jun 09, 2024 12:55
--- NOTE | 2024-06-09 20:16 | DVHSR ---
APPROVED REPORT EXAM: Two-dimensional and M-mode echocardiogram with Doppler and color Doppler. Blood Pressure: 123/66 mmHg INDICATION Chest Pain RISK FACTORS Height: 5'0", Weight: 181 DIMENSIONS LVDd4.0 (3.8-5.7cm)LA (2D)4.0 (1.9-4.0cm)Aortic Root2.9 (2.0-3.7cm) LVDs2.6 (2.5-4.0cm)LA (MM) (1.9-4.0cm)Aortic Cusp Exc1.7 (1.5-2.0cm) EF (%) 60.0 (55-70%)Rt. Atrium3.9 (1.9-4.0cm)Asc. Aorta cm IVSd1.2 (0.7-1.1cm)RV (D) (1.8-2.4cm) PWd1.0 (0.7-1.1cm) Mitral Valve MitralMitral Stenosis E wave0.83m/sMV Mean GR.mmHg A wave0.83m/sMV Peak GR.mmHg E/A ratio1.02D MVAcm2 DECEL [id number] 1/2 Timems Aortic Valve Aortic ValveAortic Stenosis V11.12m/Nisreen Mean GR.5mmHg V21.57m/Nisreen Peak GR.10mmHg LVOT Diameter1.9 (1.8-2.4cm)Doppler AVA2.02cm2 Pulmonic Valve V21.14m/s Tricuspid Valve TR Velocity2.58m/s [id number] Other Information Technically limited study due to body habitus and patient position. Conclusion LV EJECTION FRACTION IS 65% AORTIC SCLEROSIS NORMAL MV,TV,PV NORMAL RV FUNCTION NO EFFUSION NORMAL RVSP IS 30 MM OF HG AND IS NORMAL
[2024-06-10] VITALS (8 sets, daily range): BP systolic 118–141; BP diastolic 61–73; PULSE 58–73; RESP 17–20; TEMP 97.5–98.7; O2SAT 96–98
--- NOTE | 2024-06-10 09:38 | DVHINCON2 ---
Date of service: Jun 10, 2024 Reason for Consultation Acute vaginal pain History of Present Illness HPI 59y x 4. Admitted for non specific chest pain. Endorses acute vaginal pain x 1 day Denies vaginal bleeding, vaginal discharge. Denies "bulge" or prolapse symptoms Endorse chronic urinary incontinence and fecal incontinence. Denies any abnormal pap smears, last pap states was normal 2 yr ago. Patient is not sexually active x 2 years, but is , monogamous. No hx of STI Endorse "dryness" and occasional pruritis in vulva / vagina without discharge Pain is suprapubic and worse w/ movement x 24 hr. Patient is concerned because has "ovarian cyst" in 1984 that was removed Denies any family hx of ovarian, uterine, breast cancers. Past Medical History Patient Family History: Diabetes mellitus G8 MOTHER FH: hypertension Review of Systems Constitutional: No symptom reported Ears, Nose, & Throat: No symptom reported Eyes: No symptom reported Pulmonary/Respiratory: No symptom reported Cardiovascular: Chest Pain Gastrointestinal: No symptom reported Genitourinary: Incontinence, Retention, Pain Musculoskeletal: No symptom reported Skin: No symptom reported Psychiatric: No symptom reported Endocrine: No symptom reported Hemotologic/Lymphatic: No symptom reported H&P Exam Vital Signs Vital Signs Date Time Temp Pulse Resp B/P (MAP) Pulse Ox O2 Delivery O2 Flow Rate FiO2 06/10/24 05:00 98.1 66 17 128/65 (86) 96 98.1 06/09/24 20:00 Room Air* 0 21 General Appeara: Well developed, Well nourished, Normal Appearance Head Exam: Normal inspection Eye Exam: bilateral eye PERRL Cardiovascular/Chest: Normal inspection Abdominal Exam: Normal bowel sounds, Soft, No tenderness Rectal Exam: Deferred Pelvic Exam: External exam normal, Bimanual exam normal (no bleeding, no masses, no discharge noted, mild atrophy, grade 2 cystocele noted. no leak w/ valsalva ) TRANSPLANT RN Exam: Normal hearing, Normal speech, PERRL Appearance: Appropriate appearance, Appropriate insight Labs/Xrays Labs Test 06/09/24 06:46 06/08/24 19:40 06/08/24 16:48 06/08/24 15:21 Range/Units White Blood Count 5.2 4.4-10.8 10^3/uL Red Blood Count 4.19 4.0-5.20 10^6/uL Hemoglobin 13.3 12.2-16.2 g/dL Hematocrit 39.2 36.0-46.0 % Mean Corpuscular Volume 93.6 80.0-100.0 fL Mean Corpuscular Hemoglobin 31.8 28.0-32.0 pg Mean Corpuscular Hemoglobin Concent 34.0 32.0-36.0 g/dL Red Cell Distribution Width 12.2 11.8-14.3 % Platelet Count 204 140-450 10^3/uL Mean Platelet Volume 7.9 6.9-10.8 fL Neutrophils (%) (Auto) 58.7 37.0-80.0 % Lymphocytes (%) (Auto) 28.7 10.0-50.0 % Monocytes (%) (Auto) 9.0 0.0-12.0 % Eosinophils (%) (Auto) 2.7 0.0-7.0 % Basophils (%) (Auto) 0.9 0.0-2.0 % Neutrophils # (Auto) 3.0 1.6-8.6 10 ^3/uL Lymphocytes # (Auto) 1.5 0.4-5.4 10 ^3/uL Monocytes # (Auto) 0.5 0-1.3 10 ^3/uL Eosinophils # (Auto) 0.1 0-0.8 10 ^3/uL Basophils # (Auto) 0 0-0.2 10 ^3/uL Nucleated Red Blood Cells 0.1 % Sodium Level 139 136-145 mmol/L Potassium Level 4.2 3.5-5.1 mmol/L Chloride Level 105 98-107 mmol/L Carbon Dioxide Level 25 20-31 mmol/L Anion Gap 9 5-15 Blood Urea Nitrogen 11 9-23 mg/dL Creatinine 0.79 0.550-1.02 mg/dL Glomerular Filtration Rate Calc 85 >90 mL/min BUN/Creatinine Ratio 13.9 10.0-20.0 Serum Glucose 120 H 74-106 mg/dL Calcium Level 9.5 8.7-10.4 mg/dL Total Bilirubin 0.8 0.2-1.0 mg/dL Aspartate Amino Transferase (AST) 21 13-40 U/L Alanine Aminotransferase (ALT) 22 7-40 U/L Alkaline Phosphatase 65 46-116 U/L Total Protein 7.4 5.7-8.2 g/dL Albumin 4.2 3.2-4.8 g/dL Urine Color Yellow Yellow Urine Clarity Clear Clear Urine pH 5.5 5.0-9.0 Urine Specific [place] 1.023 1.001-1.035 Urine Protein Negative Negative Urine Ketones Negative Negative Urine Blood 2+ H Negative /uL Urine Nitrite Negative Negative Urine Bilirubin Negative Negative Urine Urobilinogen Normal Negative mg/dL Urine Leukocyte Esterase 1+ Negative /uL Urine RBC 8 0 - 4 /hpf Urine Microscopic WBC 4 0-5 /HPF Urine Squamous Epithelial Cells None seen <5 /hpf Urine Bacteria None seen None Seen /hpf Urine Mucus Few None Seen Urine Glucose Normal Normal mg/dL Urine Opiates Screen Neg NEGATIVE Urine Fentanyl Screen Neg NEGATIVE Urine Barbiturates Screen Neg NEGATIVE Urine Phencyclidine Screen Neg NEGATIVE Urine Amphetamines Screen Neg NEGATIVE Urine Benzodiazepines Screen Neg NEGATIVE Urine Cocaine Screen Neg NEGATIVE Urine Cannabinoids Screen Neg NEGATIVE Hemoglobin A1c 5.3 <5.7 % A1C Troponin I High Sensitivity < 3 L </=34 ng/L Test 06/08/24 11:36 Range/Units B-Type Natriuretic Peptide 14.72 0-100 pg/mL Triglycerides Level 146 < 150 mg/dL Cholesterol Level 210 H < 200 mg/dL LDL Cholesterol 151 H < 100 mg/dL HDL Cholesterol 54 40-59 mg/dL Thyroid Stimulating Hormone (TSH) 1.96 0.55-4.78 uIU/mL Assessment/Plan Admitting Diagnosis: Acute vaginal and suprapubic pain - Suspect cystitis (2+ blood on UA) Grade 2 Cystocele Hx of Urinary incontinence Plan No acute jewelry sorter intervention indicated at this time Recommend Pelvic US and UAC&S at this time to rule out other causes of pelvic pain and probable acute cystitis Grade 2 cystocele with mixed urinary incontinence, refer to UroGYN as outpatient for eval and treatment PRECISION LENS TECHNICIAN will sign off Plan discussed with: Patient Date of Service: Jun 10, 2024 Billing Provider: KARY TINOCO DO Common Visit Codes: CONSULT ONLY Consultation Codes: [id number] CONSULT <60MIN KARY TINOCO DO Jun 10, 2024 09:38
--- NOTE | 2024-06-10 10:02 | DVHPN2 ---
Reviewed: Care Plan, H&P, Labs, Medications, Previous Orders, Radiology Changes from previous H/P or p: No Changes Cardiovascular: Chest Pain Gastrointestinal: Nausea Musculoskeletal: arm pain, leg pain Objective Vitals Vital Signs Date Time Temp Pulse Resp B/P (MAP) Pulse Ox O2 Delivery O2 Flow Rate FiO2 06/10/24 05:00 98.1 66 17 128/65 (86) 96 98.1 06/09/24 20:00 Room Air* 0 21 Intake/Output Intake and Output 06/10/24 07:00 Intake Total 3850 ml Output Total 1000 ml Balance 2850 ml Intake Oral 3850 ml Output Urine Total 1000 ml # Voids 3 # Bowel Movements 1 Medications Current Medications Medications Dose Ordered Sig/Jaclyn Route Start Time Stop Time Status Last Admin Dose Admin Acetaminophen/ Hydrocodone Bitart 1 tab Q4HP PRN PO 06/08/24 13:30 Ondansetron HCl 4 mg Q4HP PRN IV 06/08/24 13:30 Enoxaparin Sodium 40 mg DAILY SC 06/09/24 10:00 06/09/24 10:47 40 MG Acetaminophen 650 mg Q6HP PRN PO 06/08/24 13:30 Nitroglycerin 0.4 mg Q5MINP PRN SL 06/08/24 13:30 Morphine Sulfate 2 mg Q30M PRN IV 06/08/24 13:30 Pantoprazole Sodium 40 mg DAILY IV 06/09/24 10:00 06/09/24 10:45 40 MG Aspirin 81 mg DAILY PO 06/09/24 10:00 06/09/24 10:47 81 MG Atorvastatin Calcium 40 mg HS PO 06/08/24 22:00 06/09/24 22:29 40 MG Laboratory Results Laboratory Tests 06/09/24 06:46 Urinalysis Test 06/08/24 19:40 Urine Color Yellow (Yellow) Urine Clarity Clear (Clear) Urine pH 5.5 (5.0-9.0) Urine Specific [place] 1.023 (1.001-1.035) Urine Protein Negative (Negative) Urine Ketones Negative (Negative) Urine Blood 2+ /uL (Negative) H Urine Nitrite Negative (Negative) Urine Bilirubin Negative (Negative) Urine Urobilinogen Normal mg/dL (Negative) Urine Leukocyte Esterase 1+ /uL (Negative) Urine RBC 8 /hpf (0 - 4) Urine Microscopic WBC 4 /HPF (0-5) Urine Squamous Epithelial Cells None seen /hpf (<5) Urine Bacteria None seen /hpf (None Seen) Urine Mucus Few (None Seen) Urine Glucose Normal mg/dL (Normal) Labs and/or images reviewed: Labs reviewed by me, Image(s) reviewed by me Assessment/Plan Assessment/Plan Chest pain troponin negative x3, probably noncardiac chest pain, cardiology consult for Dr. Ramos, aspirin Lipitor History of gastritis History of arthritis History of fibromyalgia Acute vaginal suprapubic pain secondary to possible UTI and grade 2 cystocele ,ship's surveyor consult appreciated History of urinary incontinence Chest x-ray negative CT head negative DVT ruled out Plan discussed with: Patient My Orders Orders - SAM GALINDO MD Procedure Category Date Status Time * [facility] Education Coordinator Consultation CONS 06/09/24 Transmitted 18:23 Date of Service: Jun 10, 2024 Billing Provider: SAM GALINDO MD Common Visit Codes: [id number] INP/OBS CARE(HIGH) SAM GALINDO MD Jun 10, 2024 10:02
--- NOTE | 2024-06-10 10:26 | DVH ---
INDICATION: Acute pelvic pain, history of ovarian cysts TECHNIQUE: Multiple real-time grayscale transabdominal and transvaginal sonographic images along with color and duplex Doppler of the uterus and ovaries were obtained. COMPARISON: None FINDINGS: The uterus measures 6.9 x 3.4 x 4.9 cm. The endometrial stripe measures 0.7 cm. Right ovary measures 2.1 x 1.4 x 1.5 cm with normal Doppler color flow Left ovary is not visualized. IMPRESSION: Left ovary is not visualized. Otherwise, no acute findings.
[2024-06-10 12:01] LABS: Hepatitis B Core Total AB Negative (Negative)
[2024-06-10 12:12] LABS: Hepatitis A Total Antibody Positive (Negative); Hepatitis B Surface Antibody Negative (Negative); Hepatitis B Surface Antigen Negative (Negative); Hepatitis C Antibody Negative (Negative)
--- NOTE | 2024-06-10 12:41 | DVHINCON2 ---
GI Consult Consult Note GI consult note Date of Consultation:06/10/2024 Chief Complaint:RUQ pain Referring Physician:Dr Isabella Galindo H&P: 59-year-old female with PMH gastritis, arthritis, fibromyalgia presented to ER with chest pain radiating down left arm Patient now complains of right side abdominal pain, for last few days, describes pain as sharp and is intermittent. Pain worsens with movement Patient has nausea. No vomiting Patient has history of GERD, treated with omeprazole in past, patient has stopped taking medication one year ago Last bowel movement this morning. No melena or red blood in stool Patient status post EGD diagnosed with gastritis Status post colonoscopy diagnosed with hemorrhoids Patient unsure when above two procedures were done Patient on aspirin and Lovenox Past Medical History: Arthritis Fibromyalgia gastritis Past Surgical History: (Abdominal cyst removal) Social History: NO smoking, drinking ETOH and use of illegal drugs. Family History: noncontributory Review of Systems: Constitutional: no fever, chill, weight loss Heart: no chest pain, no chest pressure Lung: no cough, no dyspnea with exertion Abdomen: see HPI Physical exam: General: NAD, AAOX3 Chest: lung mcintyre clear to auscultation Heart: RRR, no murmur Abdomen: R side tenderness to palpation, +BS Labs: Labs Test 06/10/24 10:50 06/09/24 06:46 06/08/24 19:40 06/08/24 16:48 Range/Units Hepatitis A Antibody Total Positive H Negative Hepatitis B Surface Antigen Negative Negative Hepatitis B Surface Antibody Negative Negative Hepatitis B Core Total Antibody Negative Negative Hepatitis C Antibody Negative Negative White Blood Count 5.2 4.4-10.8 10^3/uL Red Blood Count 4.19 4.0-5.20 10^6/uL Hemoglobin 13.3 12.2-16.2 g/dL Hematocrit 39.2 36.0-46.0 % Mean Corpuscular Volume 93.6 80.0-100.0 fL Mean Corpuscular Hemoglobin 31.8 28.0-32.0 pg Mean Corpuscular Hemoglobin Concent 34.0 32.0-36.0 g/dL Red Cell Distribution Width 12.2 11.8-14.3 % Platelet Count 204 140-450 10^3/uL Mean Platelet Volume 7.9 6.9-10.8 fL Neutrophils (%) (Auto) 58.7 37.0-80.0 % Lymphocytes (%) (Auto) 28.7 10.0-50.0 % Monocytes (%) (Auto) 9.0 0.0-12.0 % Eosinophils (%) (Auto) 2.7 0.0-7.0 % Basophils (%) (Auto) 0.9 0.0-2.0 % Neutrophils # (Auto) 3.0 1.6-8.6 10 ^3/uL Lymphocytes # (Auto) 1.5 0.4-5.4 10 ^3/uL Monocytes # (Auto) 0.5 0-1.3 10 ^3/uL Eosinophils # (Auto) 0.1 0-0.8 10 ^3/uL Basophils # (Auto) 0 0-0.2 10 ^3/uL Nucleated Red Blood Cells 0.1 % Sodium Level 139 136-145 mmol/L Potassium Level 4.2 3.5-5.1 mmol/L Chloride Level 105 98-107 mmol/L Carbon Dioxide Level 25 20-31 mmol/L Anion Gap 9 5-15 Blood Urea Nitrogen 11 9-23 mg/dL Creatinine 0.79 0.550-1.02 mg/dL Glomerular Filtration Rate Calc 85 >90 mL/min BUN/Creatinine Ratio 13.9 10.0-20.0 Serum Glucose 120 H 74-106 mg/dL Calcium Level 9.5 8.7-10.4 mg/dL Total Bilirubin 0.8 0.2-1.0 mg/dL Aspartate Amino Transferase (AST) 21 13-40 U/L Alanine Aminotransferase (ALT) 22 7-40 U/L Alkaline Phosphatase 65 46-116 U/L Total Protein 7.4 5.7-8.2 g/dL Albumin 4.2 3.2-4.8 g/dL Urine Color Yellow Yellow Urine Clarity Clear Clear Urine pH 5.5 5.0-9.0 Urine Specific [place] 1.023 1.001-1.035 Urine Protein Negative Negative Urine Ketones Negative Negative Urine Blood 2+ H Negative /uL Urine Nitrite Negative Negative Urine Bilirubin Negative Negative Urine Urobilinogen Normal Negative mg/dL Urine Leukocyte Esterase 1+ Negative /uL Urine RBC 8 0 - 4 /hpf Urine Microscopic WBC 4 0-5 /HPF Urine Squamous Epithelial Cells None seen <5 /hpf Urine Bacteria None seen None Seen /hpf Urine Mucus Few None Seen Urine Glucose Normal Normal mg/dL Urine Opiates Screen Neg NEGATIVE Urine Fentanyl Screen Neg NEGATIVE Urine Barbiturates Screen Neg NEGATIVE Urine Phencyclidine Screen Neg NEGATIVE Urine Amphetamines Screen Neg NEGATIVE Urine Benzodiazepines Screen Neg NEGATIVE Urine Cocaine Screen Neg NEGATIVE Urine Cannabinoids Screen Neg NEGATIVE Hemoglobin A1c 5.3 <5.7 % A1C Test 06/08/24 15:21 06/08/24 11:36 Range/Units Troponin I High Sensitivity < 3 L </=34 ng/L B-Type Natriuretic Peptide 14.72 0-100 pg/mL Triglycerides Level 146 < 150 mg/dL Cholesterol Level 210 H < 200 mg/dL LDL Cholesterol 151 H < 100 mg/dL HDL Cholesterol 54 40-59 mg/dL Thyroid Stimulating Hormone (TSH) 1.96 0.55-4.78 uIU/mL Imaging: CT abd pelvis pending Assessment: abd pain hx gastritis hx fatty liver History of GERD Plan: Discussed with Dr. Mccabe Ultrasound of abdomen Hepatitis panel pending Protonix and Zofran We will continue to monitor the patient Thank you for this consult Date of Service: Jun 10, 2024 Billing Provider: CHA GALINDO Common Visit Codes: CONSULT ONLY Consultation Codes: [id number] CONSULT <45MIN CHA GALINDO Jun 10, 2024 12:41
--- NOTE | 2024-06-10 12:47 | DVH ---
CT CT AB PEL WO CON-NO ORAL OR IV INDICATION: Right upper quadrant pain EXAM DATE: 06/10/2024 11:32 AM COMPARISON: None RADIATION DOSE: CTDIvol: 13.66 mGy, DLP: 727.88 mGy*cm PROCEDURE: Helical CT images were obtained of the abdomen and pelvis without IV contrast Sagittal and coronal reconstructions are provided. ORAL CONTRAST: None. ADDITIONAL IMAGES / REFORMATS: None All C T scans at this medical facility are performed using dose modulation techniques as appropriate to a p erformed exam including the following: Automated exposure control was utilized; adjustment of the MA and/or KV according to patient size; and use of iterative reconstruction technique. FINDINGS: LUNG BASE: Normal. LIVER: Low in attenuation. GALLBLADDER AND BILIARY TREE: No calcified gallstones. Normal caliber wall. No intra- or extrahepatic biliary ductal dilation. PANCREAS: Normal. SPLEEN: Normal. BOWEL: Normal. Normal appendix. ADRENALS: Normal. KIDNEYS AND URETER: Punctate nonobstructive left kidney stone. BLADDER: Normal. REPRODUCTIVE ORGANS: Normal. LYMPH NODES:No lymphadenopathy. PERITONEUM: No ascites or free air. No other fluid collection. VESSELS: Scattered atherosclerotic calcifications are noted. RETROPERITONEUM: Normal. ABDOMINAL WALL: Normal. BONES: Scattered osseous degenerative changes are noted. IMPRESSION: No acute intraabdominal abnormality. Punctate nonobstructive left kidney stone. Hepatic steatosis.
--- NOTE | 2024-06-10 13:49 | ECG ---
[facility] Test Date: 2024-06-08 Test Time: 11:31:41 Pat Name: SAMANTHA RUBIO Department: ER Room: 0246T B Gender: F Air Filler: LETY : 1965 Requested By: EMERGENCY EMERGENCY Order Number: [id number] Reading MD: Tony Cespedes Measurements Intervals [place] Rate: 84 P: 51 WA: 146 QRS: 61 QRSD: 79 T: 29 QT: 378 QTc: 447 Interpretive Statements Sinus rhythm Probable left atrial enlargement Baseline wander in lead(s) I,III,aVL Electronically Signed On 06-10-2024 19:09:30 PDT by Tony Cespedes Please click the below link to view image of tracing.
--- NOTE | 2024-06-10 17:03 | DVH ---
Ultrasound abdomen INDICATION: R sided abd pain. Technique: 2-D real-time ultrasound was performed with axial and sagittal images submitted for evalu ation. FINDINGS: Liver and spleen are normal in size without focal mass. No gallstones or gallbladder wall thickening. No biliary dilatation. Kidneys are normal in size without mass stone or hydronephrosis. L imited visualization of the pancreas due to overlying bowel gas. No free fluid. No abnormalities of t he aorta or inferior vena cava. IMPRESSION: 1. Fatty liver. 2. No gallstones or signs of cholecystitis or biliary obstruction
[2024-06-10] MEDS: ATORVASTATIN 20 MG TAB PO SCH (21:48)
[2024-06-11 01:00] VITALS: BP 112/64; PULSE 59; RESP 19; TEMP 97.8; O2SAT 97
[2024-06-11 05:00] VITALS: BP 115/61; PULSE 74; RESP 18; TEMP 97.5; O2SAT 97
[2024-06-11 08:00] VITALS: PULSE 71; PULSE 74; RESP 18; O2SAT 97
[2024-06-11 09:00] VITALS: BP 140/70; PULSE 74; RESP 18; TEMP 97.8; O2SAT 97
--- NOTE | 2024-06-11 10:17 | DVHPN2 ---
Reviewed: Care Plan, H&P, Labs, Medications, Previous Orders, Radiology Changes from previous H/P or p: No Changes Cardiovascular: Chest Pain Gastrointestinal: Nausea Musculoskeletal: arm pain, leg pain Objective Vitals Vital Signs Date Time Temp Pulse Resp B/P (MAP) Pulse Ox O2 Delivery O2 Flow Rate FiO2 06/11/24 09:00 97.8 74 18 140/70 (93) 97 97.8 06/10/24 20:30 Room Air* 0 21 Intake/Output Intake and Output 06/11/24 07:00 Intake Total 710 ml Output Total 675 ml Balance 35 ml Intake Oral 710 ml Output Urine Total 675 ml # Voids 4 # Bowel Movements 1 Medications Current Medications Medications Dose Ordered Sig/Jaclyn Route Start Time Stop Time Status Last Admin Dose Admin Acetaminophen/ Hydrocodone Bitart 1 tab Q4HP PRN PO 06/08/24 13:30 Ondansetron HCl 4 mg Q4HP PRN IV 06/08/24 13:30 Enoxaparin Sodium 40 mg DAILY SC 06/09/24 10:00 06/11/24 09:57 40 MG Acetaminophen 650 mg Q6HP PRN PO 06/08/24 13:30 Nitroglycerin 0.4 mg Q5MINP PRN SL 06/08/24 13:30 Morphine Sulfate 2 mg Q30M PRN IV 06/08/24 13:30 Pantoprazole Sodium 40 mg DAILY IV 06/09/24 10:00 06/11/24 09:56 40 MG Aspirin 81 mg DAILY PO 06/09/24 10:00 06/11/24 09:57 81 MG Atorvastatin Calcium 40 mg HS PO 06/10/24 22:00 06/10/24 21:48 40 MG Laboratory Results Laboratory Tests 06/09/24 06:46 Urinalysis Test 06/08/24 19:40 Urine Color Yellow (Yellow) Urine Clarity Clear (Clear) Urine pH 5.5 (5.0-9.0) Urine Specific [place] 1.023 (1.001-1.035) Urine Protein Negative (Negative) Urine Ketones Negative (Negative) Urine Blood 2+ /uL (Negative) H Urine Nitrite Negative (Negative) Urine Bilirubin Negative (Negative) Urine Urobilinogen Normal mg/dL (Negative) Urine Leukocyte Esterase 1+ /uL (Negative) Urine RBC 8 /hpf (0 - 4) Urine Microscopic WBC 4 /HPF (0-5) Urine Squamous Epithelial Cells None seen /hpf (<5) Urine Bacteria None seen /hpf (None Seen) Urine Mucus Few (None Seen) Urine Glucose Normal mg/dL (Normal) Labs and/or images reviewed: Labs reviewed by me, Image(s) reviewed by me Assessment/Plan Assessment/Plan Chest pain troponin negative x3, probably noncardiac chest pain, cardiology consult for Dr. Ramos, aspirin Lipitor History of gastritis History of arthritis History of fibromyalgia Acute vaginal suprapubic pain secondary to possible UTI and grade 2 cystocele ,superintendent menagerie consult appreciated History of urinary incontinence Abdominal pain: CT abdomen pelvis without contrast negative, gallbladder ultrasound negative for any gallstones or cholecystitis GI consult by Dr. Mccabe appreciated Chest x-ray negative CT head negative DVT ruled out Hepatitis panel shows past hep A infection Patient's feels better and being discharged home Plan discussed with: Patient My Orders Orders - SAM GALINDO MD Procedure Category Date Status Time Atorvastatin (Lipitor) PHA 06/10/24 In Process 22:00 * [facility] Quality Assurance Tech CONS 06/10/24 Transmitted 10:30 Ct Ab Pel Wo Con-No CT 06/10/24 Resulted Oral Or Iv 10:29 Date of Service: Jun 11, 2024 Billing Provider: SAM GALINDO MD Common Visit Codes: [id number] INP/OBS CARE(HIGH) SAM GALINDO MD Jun 11, 2024 10:17
[2024-06-11] MEDS ORDERED: FERR-7 PO (10:19)
[2024-06-11] MEDS ORDERED: PANT40T PO (10:19)
--- NOTE | 2024-06-11 10:22 | DVHPN2 ---
Reviewed: Care Plan, H&P, Labs, Medications, Previous Orders, Radiology Changes from previous H/P or p: No Changes Cardiovascular: Chest Pain Gastrointestinal: Nausea Musculoskeletal: arm pain, leg pain Objective Vitals Vital Signs Date Time Temp Pulse Resp B/P (MAP) Pulse Ox O2 Delivery O2 Flow Rate FiO2 06/11/24 09:00 97.8 74 18 140/70 (93) 97 97.8 06/10/24 20:30 Room Air* 0 21 Intake/Output Intake and Output 06/11/24 07:00 Intake Total 710 ml Output Total 675 ml Balance 35 ml Intake Oral 710 ml Output Urine Total 675 ml # Voids 4 # Bowel Movements 1 Medications Current Medications Medications Dose Ordered Sig/Jaclyn Route Start Time Stop Time Status Last Admin Dose Admin Acetaminophen/ Hydrocodone Bitart 1 tab Q4HP PRN PO 06/08/24 13:30 Ondansetron HCl 4 mg Q4HP PRN IV 06/08/24 13:30 Enoxaparin Sodium 40 mg DAILY SC 06/09/24 10:00 06/11/24 09:57 40 MG Acetaminophen 650 mg Q6HP PRN PO 06/08/24 13:30 Nitroglycerin 0.4 mg Q5MINP PRN SL 06/08/24 13:30 Morphine Sulfate 2 mg Q30M PRN IV 06/08/24 13:30 Pantoprazole Sodium 40 mg DAILY IV 06/09/24 10:00 06/11/24 09:56 40 MG Aspirin 81 mg DAILY PO 06/09/24 10:00 06/11/24 09:57 81 MG Atorvastatin Calcium 40 mg HS PO 06/10/24 22:00 06/10/24 21:48 40 MG Laboratory Results Laboratory Tests 06/09/24 06:46 Urinalysis Test 06/08/24 19:40 Urine Color Yellow (Yellow) Urine Clarity Clear (Clear) Urine pH 5.5 (5.0-9.0) Urine Specific [place] 1.023 (1.001-1.035) Urine Protein Negative (Negative) Urine Ketones Negative (Negative) Urine Blood 2+ /uL (Negative) H Urine Nitrite Negative (Negative) Urine Bilirubin Negative (Negative) Urine Urobilinogen Normal mg/dL (Negative) Urine Leukocyte Esterase 1+ /uL (Negative) Urine RBC 8 /hpf (0 - 4) Urine Microscopic WBC 4 /HPF (0-5) Urine Squamous Epithelial Cells None seen /hpf (<5) Urine Bacteria None seen /hpf (None Seen) Urine Mucus Few (None Seen) Urine Glucose Normal mg/dL (Normal) Labs and/or images reviewed: Labs reviewed by me, Image(s) reviewed by me Assessment/Plan Assessment/Plan Chest pain troponin negative x3, probably noncardiac chest pain, cardiology consult for Dr. Ramos, aspirin Lipitor History of gastritis History of arthritis History of fibromyalgia Acute vaginal suprapubic pain secondary to possible UTI and grade 2 cystocele ,learning engineer consult appreciated History of urinary incontinence Abdominal pain: CT abdomen pelvis without contrast negative, gallbladder ultrasound negative for any gallstones or cholecystitis GI consult by Dr. Mccabe appreciated Chest x-ray negative CT head negative DVT ruled out Hepatitis panel shows past hep A infection Patient's feels better and being discharged home Plan discussed with: Patient My Orders Orders - SAM GALINDO MD Procedure Category Date Status Time Atorvastatin (Lipitor) PHA 06/10/24 In Process 22:00 * Gi [facility] Flanging Operator CONS 06/10/24 Transmitted 10:30 Ct Ab Pel Wo Con-No CT 06/10/24 Resulted Oral Or Iv 10:29 Date of Service: Jun 11, 2024 Billing Provider: SAM GALINDO MD Common Visit Codes: [id number] INP/OBS CARE(HIGH) SAM GALINDO MD Jun 11, 2024 10:22
--- NOTE | 2024-06-11 10:25 | DVHDS2 ---
Discharge Summary Date of Admission Jun 08, 2024 at 13:27 Date of Discharge: Jun 11, 2024 Admitting Diagnosis Chest pain Wounds: None Labs/Diagnostic Data: Laboratory Results Test 06/10/24 10:50 06/09/24 06:46 06/08/24 19:40 06/08/24 16:48 Hepatitis A Antibody Total Positive (Negative) Hepatitis B Surface Antigen Negative (Negative) Hepatitis B Surface Antibody Negative (Negative) Hepatitis B Core Total Antibody Negative (Negative) Hepatitis C Antibody Negative (Negative) White Blood Count 5.2 10^3/uL (4.4-10.8) Red Blood Count 4.19 10^6/uL (4.0-5.20) Hemoglobin 13.3 g/dL (12.2-16.2) Hematocrit 39.2 % (36.0-46.0) Mean Corpuscular Volume 93.6 fL (80.0-100.0) Mean Corpuscular Hemoglobin 31.8 pg (28.0-32.0) Mean Corpuscular Hemoglobin Concent 34.0 g/dL (32.0-36.0) Red Cell Distribution Width 12.2 % (11.8-14.3) Platelet Count 204 10^3/uL (140-450) Mean Platelet Volume 7.9 fL (6.9-10.8) Neutrophils (%) (Auto) 58.7 % (37.0-80.0) Lymphocytes (%) (Auto) 28.7 % (10.0-50.0) Monocytes (%) (Auto) 9.0 % (0.0-12.0) Eosinophils (%) (Auto) 2.7 % (0.0-7.0) Basophils (%) (Auto) 0.9 % (0.0-2.0) Neutrophils # (Auto) 3.0 10 ^3/uL (1.6-8.6) Lymphocytes # (Auto) 1.5 10 ^3/uL (0.4-5.4) Monocytes # (Auto) 0.5 10 ^3/uL (0-1.3) Eosinophils # (Auto) 0.1 10 ^3/uL (0-0.8) Basophils # (Auto) 0 10 ^3/uL (0-0.2) Nucleated Red Blood Cells 0.1 % Sodium Level 139 mmol/L (136-145) Potassium Level 4.2 mmol/L (3.5-5.1) Chloride Level 105 mmol/L (98-107) Carbon Dioxide Level 25 mmol/L (20-31) Anion Gap 9 (5-15) Blood Urea Nitrogen 11 mg/dL (9-23) Creatinine 0.79 mg/dL (0.550-1.02) Glomerular Filtration Rate Calc 85 mL/min (>90) BUN/Creatinine Ratio 13.9 (10.0-20.0) Serum Glucose 120 mg/dL (74-106) Calcium Level 9.5 mg/dL (8.7-10.4) Total Bilirubin 0.8 mg/dL (0.2-1.0) Aspartate Amino Transferase (AST) 21 U/L (13-40) Alanine Aminotransferase (ALT) 22 U/L (7-40) Alkaline Phosphatase 65 U/L (46-116) Total Protein 7.4 g/dL (5.7-8.2) Albumin 4.2 g/dL (3.2-4.8) Urine Color Yellow (Yellow) Urine Clarity Clear (Clear) Urine pH 5.5 (5.0-9.0) Urine Specific [place] 1.023 (1.001-1.035) Urine Protein Negative (Negative) Urine Ketones Negative (Negative) Urine Blood 2+ /uL (Negative) Urine Nitrite Negative (Negative) Urine Bilirubin Negative (Negative) Urine Urobilinogen Normal mg/dL (Negative) Urine Leukocyte Esterase 1+ /uL (Negative) Urine RBC 8 /hpf (0 - 4) Urine Microscopic WBC 4 /HPF (0-5) Urine Squamous Epithelial Cells None seen /hpf (<5) Urine Bacteria None seen /hpf (None Seen) Urine Mucus Few (None Seen) Urine Glucose Normal mg/dL (Normal) Urine Opiates Screen Neg (NEGATIVE) Urine Fentanyl Screen Neg (NEGATIVE) Urine Barbiturates Screen Neg (NEGATIVE) Urine Phencyclidine Screen Neg (NEGATIVE) Urine Amphetamines Screen Neg (NEGATIVE) Urine Benzodiazepines Screen Neg (NEGATIVE) Urine Cocaine Screen Neg (NEGATIVE) Urine Cannabinoids Screen Neg (NEGATIVE) Hemoglobin A1c 5.3 % A1C (<5.7) Test 06/08/24 15:21 06/08/24 11:36 Troponin I High Sensitivity < 3 ng/L (</=34) B-Type Natriuretic Peptide 14.72 pg/mL (0-100) Triglycerides Level 146 mg/dL (< 150) Cholesterol Level 210 mg/dL (< 200) LDL Cholesterol 151 mg/dL (< 100) HDL Cholesterol 54 mg/dL (40-59) Thyroid Stimulating Hormone (TSH) 1.96 uIU/mL (0.55-4.78) Other Laboratory Tests 06/09/24 06:46 Brief Hx & Hospital Course: 59-year-old female with a history of gastritis arthritis fibromyalgia came in complaining of chest pain troponin negative x3 seen by Cardiology Dr. Ramos advised aspirin Lipitor noncardiac chest pain patient also complained of suprapubic pain possible UTI seen by child care specialist advised the patient has grade 2 cystocele and outpatient follow up she also complained of ower abdominal pain CT abdomen pelvis without contrast negative seen by GI Dr. Swati Mccabe gallbladder ultrasound negative hepatitis panel negative patient feels better chest x-ray negative CT head negative DVT ruled out. Patient with multiple complaints including dizziness chest pain abdominal pain pelvic pain probably anxiety. Discharged home on iron tablets and pantoprazole. Consults/Reason for consult Cardiology GI OBGYN Operations or Procedures CT abdomen pelvis without contrast Gallbladder ultrasound Pelvic ultrasound Condition at Discharge: Fair Final Diagnosis/Problems List Chest pain troponin negative x3, probably noncardiac chest pain, cardiology consult for Dr. Ramos, aspirin Lipitor History of gastritis History of arthritis History of fibromyalgia Acute vaginal suprapubic pain secondary to possible UTI and grade 2 cystocele ,sign language translator consult appreciated History of urinary incontinence Abdominal pain: CT abdomen pelvis without contrast negative, gallbladder ultrasound negative for any gallstones or cholecystitis GI consult by Dr. Mccabe appreciated Chest x-ray negative CT head negative DVT ruled out Discharge Disposition: Home Discharge Instruct/Medications Diet: Cardiac 2g Na,low cholest Activity: Light activity Follow Up/Referral: Follow up with the primary Dr in one week Resume all previous home meds Medications: Pantoprazole Iron Transmitted to pharmacy 35 (Time Taken for discharge summary 35 minutes) Discharge Statement: "Patient was advised to return to the ER or call 911 if any headaches, dizziness, shortness of breath, chest pain, abdominal pain, bleeding, fevers, or worsening of medical condition. Patient was counseled about treatment plan, medications, possible side effects, patientverbalized understanding. All questions were answered to the best of my ability. This discharge took greater then 30 minutes in planning, reviewing documentation, counseling the patient, and discussing with other team members." ASSESSMENT ASSESSMENT Hospital Course Improved Assessment Chest pain troponin negative x3, probably noncardiac chest pain, cardiology consult for Dr. Ramos, aspirin Lipitor History of gastritis History of arthritis History of fibromyalgia Acute vaginal suprapubic pain secondary to possible UTI and grade 2 cystocele ,sign language translator consult appreciated History of urinary incontinence Abdominal pain: CT abdomen pelvis without contrast negative, gallbladder ultrasound negative for any gallstones or cholecystitis GI consult by Dr. Mccabe appreciated Chest x-ray negative CT head negative DVT ruled out Date of Service: Jun 11, 2024 Billing Provider: SAM GALINDO MD Common Visit Codes: [id number] DISCH DAY >30min SAM GALINDO MD Jun 11, 2024 10:25
[2024-06-11 11:09] VITALS: BP 145/77
== END 2024-06-11 12:20 | disposition home or self-care (01) | DRG 203 ==
LOC: ER 11:32 → OVERFLOW 13:27 → TELE-EAST 18:38
PROVIDERS: ADMIT Family Medicine; ATTEND Family Medicine
DX: M94.0 Chondrocostal junction syndrome [Tietze] (principal); K76.0 Fatty (change of) liver, not elsewhere classified; F41.9 Anxiety disorder, unspecified; N39.0 Urinary tract infection, site not specified; N81.10 Cystocele, unspecified; K21.9 Gastro-esophageal reflux disease without esophagitis; R32 Unspecified urinary incontinence; Z86.19 Personal history of other infectious and parasitic diseases; Z88.0 Allergy status to penicillin; Z82.49 Family history of ischemic heart disease and other diseases of the circulatory system; Z83.3 Family history of diabetes mellitus; Z79.899 Other long term (current) drug therapy
CPT/HCPCS: 36415; 70450; 71045; 74176; 76705; 76856; 80053; 80061; 80307; 81001; 83036; 83880; 84443; 84484; 85025; 86704; 86706; 86708; 86803; 87340; 93005; 93306; 93970; G0378; J2470

== ENCOUNTER 2024-09-26 03:41 | Emergency (ER) | payer MEDICAID ==
[~2024-09-26] VITALS: Ht 152.4 cm; Wt 86.0 kg
[~2024-09-26 03:41] MED LIST changes: -CYCL-837 PO; +FERR-7 PO; -IBUP-1455 PO; +PANT40T PO
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
[2024-09-26] MEDS ORDERED: ACET500T58 PO (04:32)
[2024-09-26] MEDS ORDERED: CYCL-614 PO (04:32)
[2024-09-26 04:43] VITALS: BP 167/99; TEMP 97.8
[2024-09-26] MEDS: ONDANSETRON ODT 4 MG TAB PO ONE (04:50)
[2024-09-26] MEDS: HYDROcodone-ACET 5/325MG TAB PO ONE (04:51)
--- NOTE | 2024-09-26 04:52 | DVH ---
INDICATION: lumbar back pain TECHNIQUE: 2 views of the lumbar spine were obtained. COMPARISON: None FINDINGS: There are no acute fractures or subluxations. Mild degenerative disc space narrowing at L5-S1. IMPRESSION: No acute fracture or subluxation.
--- NOTE | 2024-09-26 04:55 | DVH ---
INDICATION: Thoracic back pain COMPARISON: None TECHNIQUE: Frontal and lateral views of the thoracic spine were obtained. FINDINGS: The thoracic vertebral alignment is normal. The intervertebral disc spaces are well-maintained. No significant facet arthropathy is noted. No acute fracture, vertebral compression deformity or aggressive osseous lesions. The imaged thorax and abdomen are grossly unremarkable. IMPRESSION: 1. No acute fracture.
[2024-09-26 04:56] VITALS: PULSE 85; RESP 16; O2SAT 98
--- NOTE | 2024-09-26 04:58 | DVH ---
EXAM: CT CERVICAL WITHOUT CONTRAST INDICATION: Neck pain EXAM DATE: 09/26/2024 04:21 AM COMPARISON: None TECHNIQUE: Multiple axial CT images of the cervical spine were obtained using bone algorithm. Sagitta l and coronal reformatting was done. Bone and soft tissue windows were reviewed. Radiation Dose Information: CT Dose: CTDI volume is 25.1 mGy. Dose-length product is 638.7 mGy*cm FINDINGS: The cervical alignment is intact. Reversal of the cervical lordosis. No acute cervical spine fracture is identified. The vertebral body heights are intact. No suspicious osseous lesions are identified. No significant degenerative changes are identified. No significant spinal or neural foraminal stenosi s. There is no prevertebral soft tissue swelling. Lung apices are clear. IMPRESSION: 1. No evidence of acute cervical spine fracture or traumatic malalignment. All CT scans at this medical facility are performed using dose modulation techniques as appropriate t o a performed exam including the following: Automated exposure control was utilized; adjustment of th e MA and/or KV according to patient size; and use of iterative reconstruction technique.
== END 2024-09-26 05:39 | disposition home or self-care (01) ==
LOC: EDBD 03:41 → ER 03:41
DX: S16.1XXA Strain of muscle, fascia and tendon at neck level, initial encounter (principal); S29.012A Strain of muscle and tendon of back wall of thorax, initial encounter; S39.012A Strain of muscle, fascia and tendon of lower back, initial encounter; Z79.899 Other long term (current) drug therapy; Z88.0 Allergy status to penicillin; V49.88XA Car occupant (driver) (passenger) injured in other specified transport accidents, initial encounter; Y93.I9 Activity, other involving external motion; Y92.488 Other paved roadways as the place of occurrence of the external cause; Y99.8 Other external cause status
CPT/HCPCS: 72070; 72100; 72125; 99284; Q0162

== ENCOUNTER 2024-11-14 15:38 | Emergency (ER) | payer MEDICAID, OTHER ==
[~2024-11-14] VITALS: Ht 162.6 cm; Wt 86.5 kg
[~2024-11-14 15:38] MED LIST changes: +ACET500T58 PO; +CYCL-614 PO
[2024-11-14] MEDS: ONDANSETRON HCL 4 MG/2 ML VIAL IV ONE (16:00)
--- NOTE | 2024-11-14 16:35 | DVH ---
CT CT AB PEL WO CON-NO ORAL OR IV INDICATION: n/v /d EXAM DATE: 11/14/2024 03:50 PM COMPARISON: US ABDOMEN LIMITED on DOS: 06/10/24, CT CT AB PEL WO CON-NO ORAL OR IV on DOS: 06/10/24, US PELVIC on DOS: 06/10/24 RADIATION DOSE: CTDIvol: 17 mGy, DLP: 973 mGy*cm PROCEDURE: Helical CT images were obtained of the abdomen and pelvis without IV contrast Sagittal and coronal reconstructions are provided. ORAL CONTRAST: None. ADDITIONAL IMAGES / REFORMATS: None All C T scans at this medical facility are performed using dose modulation techniques as appropriate to a p erformed exam including the following: Automated exposure control was utilized; adjustment of the MA and/or KV according to patient size; and use of iterative reconstruction technique. FINDINGS: LUNG BASE: Normal. LIVER: Mild hepatic steatosis. GALLBLADDER AND BILIARY TREE: No calcified gallstones. Normal caliber wall. No intra- or extrahepatic biliary ductal dilation. PANCREAS: Normal. SPLEEN: Normal. BOWEL: Distended stomach with food material. Normal appendix. No small bowel dilation is visualized. ADRENALS: Normal. KIDNEYS AND URETER: Normal. BLADDER: Normal. REPRODUCTIVE ORGANS: Normal. LYMPH NODES:No lymphadenopathy. PERITONEUM: No ascites or free air. No other fluid collection. VESSELS: Scattered atherosclerotic calcifications are noted. RETROPERITONEUM: Normal. ABDOMINAL WALL: Normal. BONES: Scattered osseous degenerative changes are noted. IMPRESSION: No acute intraabdominal abnormality.Distended stomach with food material. Mild hepatic steatosis.
[2024-11-14 16:48] LABS: Hematocrit 42.7 % (36.0-46.0); Hemoglobin 14.8 g/dL (12.2-16.2); Mean Corpuscular Hemoglobin 32.7 pg (28.0-32.0); Mean Corpuscular Volume 94.3 fL (80.0-100.0); Nucleated Red Blood Cells % 0.1 %
[2024-11-14 16:59] LABS: Alanine Aminotransferase 32 U/L (7-40); Albumin 4.7 g/dL (3.2-4.8); Alkaline Phosphatase 81 U/L (46-116); Anion Gap 10 (5-15); BUN/Creatinine Ratio 16.9 (10.0-20.0); Blood Urea Nitrogen 14 mg/dL (9-23); Calcium 9.2 mg/dL (8.7-10.4); Carbon Dioxide 23 mmol/L (20-31); Chloride 106 mmol/L (98-107); Potassium 3.6 mmol/L (3.5-5.1); Sodium 139 mmol/L (136-145)
[2024-11-14 17:00] LABS: Bilirubin, Total 0.6 mg/dL (0.2-1.0); Glucose 145 mg/dL (74-106); Total Protein 8.6 g/dL (5.7-8.2)
[2024-11-14 17:06] LABS: Lactic Acid w/Reflex 2.2 mmol/L (0.4-2.0)
--- NOTE | 2024-11-14 17:48 | DVH ---
CHEST RADIOGRAPH Indication: Hemoptysis Technique: Single frontal view of the chest was obtained Comparison: XY CHEST PORTABLE on DOS: 06/08/24, XY CHEST XRAY 1 VIEW on DOS: 01/31/24 FINDINGS: Lines and Tubes: None Lungs: No focal consolidation. Pleura: No effusion. No pneumothorax. Cardiomediastinal contours: Unremarkable Bones: No acute osseous abnormality. IMPRESSION: 1. No acute cardiopulmonary disease.
--- NOTE | 2024-11-14 17:51 | ED.PDOC ---
GI ASSESSMENT HPI Comments 59-year-old female with a history of gastritis, anemia, incontinence and fatty liver brought in by private car complaining of nausea, vomiting and diarrhea since this morning. Patient states she developed for episodes of diarrhea and 3 episodes of vomiting after eating food prepared for her containing ground beef. She denies any abdominal pain, fever or dysuria. Chief Complaint: Diarrhea Time Seen by MD: 15:47 Primary Care Provider: UNKNOWN Allergies: Coded Allergies: Penicillins (Verified Allergy, Unknown, 01/31/24) Home Meds Active Scripts Cyclobenzaprine HCl (Cyclobenzaprine Hydrochlo) 5 Mg Tab, 5 MG PO QHSP, #14 TAB 0 Refills Prov:JOHN SANDOVAL 09/26/24 Acetaminophen (Acetaminophen) 500 Mg Tab, 500 MG PO Q4HPRN, #30 TAB 0 Refills Prov:JOHN SANDOVAL 09/26/24 Ferrous Sulfate (Iron) 325 Mg Tab, 325 MG PO BID, #180 TAB Prov:SAM GALINDO MD 06/11/24 Pantoprazole Sodium Sesquihydr (Pantoprazole Sodium) 40 Mg Tab, 40 MG PO DAILY, #30 TAB Prov:SAM GALINDO MD 06/11/24 Information Source: Patient Mode of Arrival: Ambulatory Timing: Days Duration: Since onset Prehospital treatment: None Quality: Aching Vomitus: Food Particles Stool: Watery, Brown Severity: Moderate Recent: None Recent Hx of: None Pain Location: Diffuse Associated sign and symptoms: Nausea, Vomiting, Abdominal Pain Past Medical History Past Medical History (Other): Urinary and fecal incontinence, gastritis, anemia, fatty liver Surgical History (Other): Ovarian cystectomy 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 Family History Family History: Reviewed,noncontributory to illness Social History Smoker: Non-Smoker Alcohol: Denies ETOH Use Drugs: Denies Drug Use Lives In: Home Constitutional: denies: chills, diaphoresis, fatigue, fever, malaise, sweats, weakness, others EENTM: denies: blurred vision, double vision, ear bleeding, ear discharge, ear drainage, ear pain, ear ringing, eye pain, eye redness, hearing loss, mouth pain, mouth swelling, nasal discharge, nose bleeding, nose congestion, nose pain, photophobia, tearing, throat pain, throat swelling, voice changes, others Respiratory: denies: cough, hemoptysis, orthopnea, SOB at rest, shortness of breath, SOB with excertion, stridor, wheezing, others Cardiovascular: denies: chest pain, dizzy spells, diaphoresis, Dyspnea on exertion, edema, irregular heart beat, left arm pain, lightheadedness, palpitations, PND, syncope, others Gastrointestinal: reports: abdominal pain, diarrhea, nausea, vomiting; denies: abdomen distended, blood streaked bowels, constipated, dysphagia, difficulty swallowing, hematemesis, melena, poor appetite, poor fluid intake, rectal bleeding, rectal pain, others Genitourinary: denies: abnormal vagina bleeding, burning, dyspareunia, dysuria, flank pain, frequency, hematuria, incontinence, pain, , vagina discharge, urgency, others Neurological: denies: dizziness, fainting, headache, left sided numbness, left sided weakness, numbness, paresthesia, pre-existing deficit, right sided numbness, right sided weakness, seizure, speech problems, tingling, tremors, weakness, others Musculoskeletal: denies: back pain, gout, joint pain, joint swelling, muscle pain, muscle stiffness, neck pain, others Integumetry: denies: bruises, change in color, change in hair/nails, dryness, laceration, lesions, lumps, rash, wounds, others Allergic/Immunocompromised: denies: Difficulty Healing, Frequent Infections, Hives, Itching, others Hematologic/Lymphatic: denies: anemia, blood clots, easy bleeding, easy bruising, swollen glands, others Endocrine: denies: excessive hunger, excessive sweating, excessive thirst, excessive urination, flushing, intolerance to cold, intolerance to heat, unexplained weight gain, unexplained weight loss, others Psychiatric: denies: anxiety, bipolar disorder, depression, hopeless, panic disorder, schizophrenia, sleepless, suicidal, others All Other Systems: Reviewed and Negative (Comprehensive systems review obtained and negative except for what is stated in the HPI.) Physical Exam General Appearance: No Apparent Distress HEENT: Other (Pupils and face symmetric. Moist mucous membranes.) Neck: Full Range of Motion, Normal Inspection Respiratory: Lungs Clear, No Accessory Muscle Use, No Respiratory Distress, Normal Breath Sounds Cardiovascular: No Edema, No JVD, Regular Rate/Rhythm Breast Exam: Deferred Gastrointestinal: Non Tender, Soft Genitalia: Deferred Pelvic: Deferred Rectal: Deferred Extremities: Normal inspection, Normal range of motion, Non-tender, No pedal edema Neurologic: Alert (Oriented x4), Normal Affect, Normal Mood, Other (Ambulatory with walker) Cerebellar Function: NOT DONE Reflexes: NOT DONE Skin: Dry, Normal Color, Warm Lymphatic: NOT DONE Was a procedure done? Was a procedure done?: No GI differential Dx Differential Diagnosis: Diverticular disease, Gastritis/PUD, Gastroenteritis, Hepatitis, Inflammatory BD, Ischemic Bowel, UTI, Dehydration, Electrolyte Imbalance, Food Poisoning, Bacterial, Viral, Hypovolemia, Renal Failure, Stress Ulcer, Kidney Stone Other Differential Diagnosis Colitis, among others X-Ray, Labs, Meds, VS Vital Signs Date Time Temp Pulse Resp B/P (MAP) Pulse Ox O2 Delivery O2 Flow Rate FiO2 11/14/24 19:00 75 16 96 Room Air 11/14/24 19:00 98.1 75 16 128/81 (97) 96 98.1 11/14/24 15:40 98.9 87 16 122/76 97 98.9 Lab Test 11/14/24 18:27 11/14/24 16:25 Range/Units Lactic Acid Level 1.5 2.2 *H 0.4-2.0 mmol/L White Blood Count 6.3 4.4-10.8 10^3/uL Red Blood Count 4.53 4.0-5.20 10^6/uL Hemoglobin 14.8 12.2-16.2 g/dL Hematocrit 42.7 36.0-46.0 % Mean Corpuscular Volume 94.3 80.0-100.0 fL Mean Corpuscular Hemoglobin 32.7 H 28.0-32.0 pg Mean Corpuscular Hemoglobin Concent 34.6 32.0-36.0 g/dL Red Cell Distribution Width 12.6 11.8-14.3 % Platelet Count 257 140-450 10^3/uL Mean Platelet Volume 8.1 6.9-10.8 fL Neutrophils (%) (Auto) 72.8 37.0-80.0 % Lymphocytes (%) (Auto) 20.5 10.0-50.0 % Monocytes (%) (Auto) 4.2 0.0-12.0 % Eosinophils (%) (Auto) 1.3 0.0-7.0 % Basophils (%) (Auto) 1.2 0.0-2.0 % Neutrophils # (Auto) 4.6 1.6-8.6 10 ^3/uL Lymphocytes # (Auto) 1.3 0.4-5.4 10 ^3/uL Monocytes # (Auto) 0.3 0-1.3 10 ^3/uL Eosinophils # (Auto) 0.1 0-0.8 10 ^3/uL Basophils # (Auto) 0.1 0-0.2 10 ^3/uL Nucleated Red Blood Cells 0.1 % Sodium Level 139 136-145 mmol/L Potassium Level 3.6 3.5-5.1 mmol/L Chloride Level 106 98-107 mmol/L Carbon Dioxide Level 23 20-31 mmol/L Anion Gap 10 5-15 Blood Urea Nitrogen 14 9-23 mg/dL Creatinine 0.83 0.550-1.02 mg/dL Glomerular Filtration Rate Calc 80 >90 mL/min BUN/Creatinine Ratio 16.9 10.0-20.0 Serum Glucose 145 H 74-106 mg/dL Calcium Level 9.2 8.7-10.4 mg/dL Total Bilirubin 0.6 0.2-1.0 mg/dL Aspartate Amino Transferase (AST) 30 13-40 U/L Alanine Aminotransferase (ALT) 32 7-40 U/L Alkaline Phosphatase 81 46-116 U/L Total Protein 8.6 H 5.7-8.2 g/dL Albumin 4.7 3.2-4.8 g/dL Current Medications Medications (Trade) Dose Ordered Sig/Jaclyn Route Start Time Stop Time Status Last Admin Sodium Chloride 1,000 ml @ 1,000 mls/hr Q1H ONCE IV 11/14/24 16:00 11/14/24 16:59 DC 11/14/24 18:55 PROCEDURE(s): CXR1 - CHEST XRAY 1 VIEW REASON: Hemoptysis ORDER NUMBER(s): [id number], ACCESSION NUMBER(s): [id number] CHEST RADIOGRAPH Indication: Hemoptysis Technique: Single frontal view of the chest was obtained Comparison: XY CHEST PORTABLE on DOS: 06/08/24, XY CHEST XRAY 1 VIEW on DOS: 01/31/24 FINDINGS: Lines and Tubes: None Lungs: No focal consolidation. Pleura: No effusion. No pneumothorax. Cardiomediastinal contours: Unremarkable Bones: No acute osseous abnormality. IMPRESSION: 1. No acute cardiopulmonary disease. EDURE(s): ABPL - CT AB PEL WO CON-NO ORAL OR IV REASON: n/v /d ORDER NUMBER(s): [id number], ACCESSION NUMBER(s): [id number] CT CT AB PEL WO CON-NO ORAL OR IV INDICATION: n/v /d EXAM DATE: 11/14/2024 03:50 PM COMPARISON: US ABDOMEN LIMITED on DOS: 06/10/24, CT CT AB PEL WO CON-NO ORAL OR IV on DOS: 06/10/24, US PELVIC on DOS: 06/10/24 RADIATION DOSE: CTDIvol: 17 mGy, DLP: 973 mGy*cm PROCEDURE: Helical CT images were obtained of the abdomen and pelvis without IV contrast Sagittal and coronal reconstructions are provided. ORAL CONTRAST: None. ADDITIONAL IMAGES / REFORMATS: None All CT scans at this medical facility are performed using dose modulation techniques as appropriate to a performed exam including the following: Automated exposure control was utilized; adjustment of the MA and/or KV according to patient size; and use of iterative reconstruction technique. FINDINGS: LUNG BASE: Normal. LIVER: Mild hepatic steatosis. GALLBLADDER AND BILIARY TREE: No calcified gallstones. Normal caliber wall. No intra- or extrahepatic biliary ductal dilation. PANCREAS: Normal. SPLEEN: Normal. BOWEL: Distended stomach with food material. Normal appendix. No small bowel di lation is visualized. ADRENALS: Normal. KIDNEYS AND URETER: Normal. BLADDER: Normal. REPRODUCTIVE ORGANS: Normal. LYMPH NODES:No lymphadenopathy. PERITONEUM: No ascites or free air. No other fluid collection. VESSELS: Scattered atherosclerotic calcifications are noted. RETROPERITONEUM: Normal. ABDOMINAL WALL: Normal. BONES: Scattered osseous degenerative changes are noted. IMPRESSION: No acute intraabdominal abnormality.Distended stomach with food material. Mild hepatic steatosis. X-Ray, Labs, Meds, VS Comment 59-year-old female with a history of gastritis, anemia, incontinence and fatty liver brought in by private car complaining of nausea, vomiting and diarrhea since this morning. Vitals unremarkable Exam unremarkable Rhythm strip independently interpreted by me: Sinus rhythm, rate 87, no ectopy. Chest x-ray remarkable CT abdomen and pelvis IMPRESSION: No acute intraabdominal abnormality.Distended stomach with food material. Mild hepatic steatosis. CBC and CMP unremarkable, 1st lactate 2.2, 1.5 on repeat, UA pending Patient treated with the following in the ED: 1L 0.9 normal saline IV bolus, Zofran 4 mg IV, Levaquin 500 mg IV, Flagyl 500 mg IV On re-evaluation, nausea has improved, vitals were stable. Hospitalization was considered, however patient had rapid improvement of symptoms with treatment in the ED, and I no longer feel hospitalization is necessary. Patient now appears stable for discharge with close outpatient follow-up with her primary physician. Rx Cipro, Flagyl, Zofran, Imodium Time of 1ST Reevaluation: 18:16 Reevaluation 1ST: Unchanged Time of 2ND Reevaluation: 22:20 Reevaluation 2ND: Improved Patient Education/Counseling: Diagnosis, Treatment Family Education/Counseling: No Family Present SEPSIS Sepsis Screen Date sepsis recognized/suspect: Nov 14, 2024 Time Sepsis recognized/suspect: 0 Recent Procedure: No On Antibiotic Therapy: No Respiratory Rate >20: No Heart Rate >90: No Temp<36 C (96.8 F) or >38.3 C: No SBP <90 or MAP <65 mmHG: No New Acute Mental Status Change: No Is the patient on CPAP, BIPAP,: No Physician Orders Urinalysis (11/14/24 15:48) Blood Culture (11/14/24 15:48) Ct Ab Pel Wo Con-No Oral Or Iv (11/14/24 15:48) Chest Xray 1 View (11/14/24 17:06) Vital Signs Date Time Temp Pulse Resp B/P (MAP) Pulse Ox O2 Delivery O2 Flow Rate FiO2 11/14/24 19:00 75 16 96 Room Air 11/14/24 19:00 98.1 75 16 128/81 (97) 96 98.1 11/14/24 15:40 98.9 87 16 122/76 97 98.9 Laboratory Tests Test 11/14/24 16:25 11/14/24 18:27 Lactic Acid Level 2.2 mmol/L (0.4-2.0) *H 1.5 mmol/L (0.4-2.0) White Blood Count 6.3 10^3/uL (4.4-10.8) Medications Medications Dose Ordered Sig/Jaclyn Route Start Time Stop Time Status Last Admin Dose Admin Sodium Chloride 1,000 ml @ 1,000 mls/hr Q1H ONCE IV 11/14/24 16:00 11/14/24 16:59 DC 11/14/24 18:55 Departure 1 Departure Time of Disposition: 22:30 Impression: Primary Impression: Diarrhea Additional Impression: Dehydration Disposition: HOME / SELF CARE / HOMELESS Condition: Stable Additional Instructions: Your blood tests were unremarkable except for an elevated lactic acid level, which may be due to dehydration. We have provided IV duration and antibiotics in the ER. I have prescribed antibiotics for possible intestinal infection. Your CT scan and chest x-ray were unremarkable. Follow-up with your primary doctor in 1-2 days. Return to ER for persistent or worsening symptoms. e-Prescriptions Loperamide Hcl (Imodium) 2 Mg Cp 2 MG PO Q6HP PRN, #20 CAP Prn diarrhea Prov: ANTHONY DINERO MD 11/14/24 Ondansetron Odt 4MG Tab (ZOFRAN PO) 4 Mg Tb 4 MG PO TID PRN, #30 TAB Prn nausea/vomiting ODT TAB-DISSOLVE IN MOUTH, THEN SWALLOW Prov: ANTHONY DINERO MD 11/14/24 Metronidazole (Flagyl) 500 Mg Tab 1 TAB PO TID for 10 Days, #30 TAB Prov: ANTHONY DINERO MD 11/14/24 Ciprofloxacin Hcl (Cipro) 500 Mg Tab 1 TAB PO BID for 10 Days, #20 TAB Prov: ANTHONY DINERO MD 11/14/24 Discharged With: Relative Critical Care Note Critical Care Time?: No Stability Stability form required: No Heart Score Heart Score: Heart Score Response (Comments) Value History N/A 0 EKG N/A 0 Age N/A 0 Risk Factors N/A 0 Troponin N/A 0 Total 0 I personally scribed for ANTHONY DINERO MD ([email or web address]) on 11/14/24 at 18:01. Electronically submitted by Devon Angel ([email or web address]). ANTHONY DINERO MD Nov 14, 2024 17:51
[2024-11-14] MEDS: SODIUM CHLORIDE 0.9% 1,000 ML IV ONE (18:55)
[2024-11-14] MEDS ORDERED: CIPR-173 PO (22:26)
[2024-11-14] MEDS ORDERED: LOPE2CAP16 PO (22:26)
[2024-11-14] MEDS ORDERED: METR-344 PO (22:26)
[2024-11-14] MEDS ORDERED: ZOFR4T PO (22:26)
[2024-11-14 22:59] LABS: Urine Protein, UAD Negative (Negative)
[2024-11-14 23:29] VITALS: BP 138/81; PULSE 61; RESP 17; TEMP 97.4; O2SAT 97
== END 2024-11-14 23:34 | disposition home or self-care (01) ==
LOC: ER 15:38
DX: R19.7 Diarrhea, unspecified (principal); E86.0 Dehydration; Z87.19 Personal history of other diseases of the digestive system; Z79.899 Other long term (current) drug therapy; Z88.0 Allergy status to penicillin
CPT/HCPCS: 36415; 71045; 74176; 80053; 81001; 83605; 85025; 87040; 96360; 99284; J7030

== ENCOUNTER 2024-12-24 10:36 | Emergency (ER) | payer MEDICAID ==
[~2024-12-24] VITALS: Ht 152.4 cm; Wt 87.9 kg
[~2024-12-24 10:36] MED LIST changes: +CIPR-173 PO; +LOPE2CAP16 PO; +METR-344 PO; +ZOFR4T PO
[2024-12-24 10:54] VITALS: PULSE 78; RESP 16; O2SAT 98
--- NOTE | 2024-12-24 10:57 | ED.PDOC ---
History of Present Illness HPI Comments 59F PRESENTS TO THE ER FOR THE C/C OF MEDICATION REFILL. PT REPORTS ON NEEDING A REFILL FOR HER GASTRITIS MEDICATION. PT NOTES THAT HE DOES NOT HAVE A PCP AT THIS TIME. Denies any other symptoms at this time. Chief Complaint: Abdominal Pain Time Seen by MD: 10:55 Primary Care Provider: UNKNOWN Reviewed Notes: Nurses Notes, Medications, Allergies Allergies: Coded Allergies: Penicillins (Verified Allergy, Unknown, 01/31/24) Home Meds Active Scripts Loperamide Hcl (Imodium) 2 Mg Cp, 2 MG PO Q6HP PRN, #20 CAP Prn diarrhea Prov:ANTHONY DINERO MD 11/14/24 Ondansetron Odt 4MG Tab (ZOFRAN PO) 4 Mg Tb, 4 MG PO TID PRN, #30 TAB Prn nausea/vomiting ODT TAB-DISSOLVE IN MOUTH, THEN SWALLOW Prov:ANTHONY DINERO MD 11/14/24 Metronidazole (Flagyl) 500 Mg Tab, 1 TAB PO TID for 10 Days, #30 TAB Prov:ANTHONY DINERO MD 11/14/24 Ciprofloxacin Hcl (Cipro) 500 Mg Tab, 1 TAB PO BID for 10 Days, #20 TAB Prov:ANTHONY DINERO MD 11/14/24 Cyclobenzaprine HCl (Cyclobenzaprine Hydrochlo) 5 Mg Tab, 5 MG PO QHSP, #14 TAB 0 Refills Prov:JOHN SANDOVAL 09/26/24 Acetaminophen (Acetaminophen) 500 Mg Tab, 500 MG PO Q4HPRN, #30 TAB 0 Refills Prov:JOHN SANDOVAL 09/26/24 Ferrous Sulfate (Iron) 325 Mg Tab, 325 MG PO BID, #180 TAB Prov:SAM GALINDO MD 06/11/24 Pantoprazole Sodium Sesquihydr (Pantoprazole Sodium) 40 Mg Tab, 40 MG PO DAILY, #30 TAB Prov:SAM GALINDO MD 06/11/24 Information Source: Patient Mode of Arrival: Ambulatory Severity: Moderate Timing: Came on: Suddenly Duration: Since onset Prehospital treatment: None Medication Refill: Ran out of Medication Past Medical History PAST MEDICAL HISTORY: Denies Past Medical History (Other): GASTRITIS Surgical History: Denies all surgeries 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 Family History Family History: Reviewed,noncontributory to illness, Unknown Social History Smoker: Non-Smoker Alcohol: Denies ETOH Use Drugs: Denies Drug Use Lives In: Home Constitutional: reports: others (MEDICATION REFILL); denies: chills, diaphoresis, fatigue, fever, malaise, sweats, weakness EENTM: denies: blurred vision, double vision, ear bleeding, ear discharge, ear drainage, ear pain, ear ringing, eye pain, eye redness, hearing loss, mouth pain, mouth swelling, nasal discharge, nose bleeding, nose congestion, nose pain, photophobia, tearing, throat pain, throat swelling, voice changes, others Respiratory: denies: cough, hemoptysis, orthopnea, SOB at rest, shortness of breath, SOB with excertion, stridor, wheezing, others Cardiovascular: denies: chest pain, dizzy spells, diaphoresis, Dyspnea on exertion, edema, irregular heart beat, left arm pain, lightheadedness, palpitations, PND, syncope, others Gastrointestinal: denies: abdomen distended, abdominal pain, blood streaked bowels, constipated, diarrhea, dysphagia, difficulty swallowing, hematemesis, melena, nausea, poor appetite, poor fluid intake, rectal bleeding, rectal pain, vomiting, others Genitourinary: denies: abnormal vagina bleeding, burning, dyspareunia, dysuria, flank pain, frequency, hematuria, incontinence, pain, , vagina discharge, urgency, others Neurological: denies: dizziness, fainting, headache, left sided numbness, left sided weakness, numbness, paresthesia, pre-existing deficit, right sided numbness, right sided weakness, seizure, speech problems, tingling, tremors, weakness, others Musculoskeletal: denies: back pain, gout, joint pain, joint swelling, muscle pain, muscle stiffness, neck pain, others Integumetry: denies: bruises, change in color, change in hair/nails, dryness, laceration, lesions, lumps, rash, wounds, others Allergic/Immunocompromised: denies: Difficulty Healing, Frequent Infections, Hives, Itching, others Hematologic/Lymphatic: denies: anemia, blood clots, easy bleeding, easy bruising, swollen glands, others Endocrine: denies: excessive hunger, excessive sweating, excessive thirst, excessive urination, flushing, intolerance to cold, intolerance to heat, unexplained weight gain, unexplained weight loss, others Psychiatric: denies: anxiety, bipolar disorder, depression, hopeless, panic disorder, schizophrenia, sleepless, suicidal, others All Other Systems: Reviewed and Negative Physical Exam General Appearance: No Apparent Distress, Normal HEENT: Normal ENT Inspection, Pharynx Normal, TMs Normal Neck: Full Range of Motion, Non-Tender, Normal, Normal Inspection Respiratory: Chest Non-Tender, Lungs Clear, No Accessory Muscle Use, No Respir atory Distress, Normal Breath Sounds Cardiovascular: No Edema, No JVD, No Murmur, No Gallop, Normal Peripheral Pulses, Regular Rate/Rhythm Breast Exam: Deferred Gastrointestinal: No Organomegaly, Non Tender, No Pulsatile Mass, Normal Bowel Sounds, Soft Genitalia: Deferred Pelvic: Deferred Rectal: Deferred Extremities: No calf tenderness, Normal capillary refill, Normal inspection, Normal range of motion, Non-tender, No pedal edema Musculoskeletal : Apperance: Normal Neurologic: Alert, leather coverer II-XII nml as Tested, No Motor Deficits, Normal Affect, Normal Mood, No Sensory Deficits Cerebellar Function: Normal Reflexes: Normal Skin: Dry, Normal Color, Warm Lymphatic: No Adenopathy Was a procedure done? Was a procedure done?: No Differential Dx Considerations may include: Med refill X-Ray, Labs, Meds, VS Vital Signs Date Time Temp Pulse Resp B/P (MAP) Pulse Ox O2 Delivery O2 Flow Rate FiO2 12/24/24 11:59 73 18 97 Room Air 12/24/24 11:59 97.7 73 18 144/76 (98) 97 97.7 12/24/24 10:54 98.2 82 16 145/62 (89) 98 98.2 12/24/24 10:54 78 16 98 Room Air* 0 21 12/24/24 10:38 97.9 77 18 150/72 98 97.9 X-Ray, Labs, Meds, VS Comment On reevaluation, patient had symptomatic improvement. Patient is stable for discharge at this time. External notes reviewed. Test results and diagnostic imaging interpreted. All diagnostic findings, discharge care, education and instructions provided Follow-up with PCP in 2 to 3 days Patient verbalized understanding and agreed to treatment plan Vital signs stable, afebrile, no acute distress noted Patient ambulatory with strong steady gait Advised to return precautions for any new or worsening symptoms, return to ER immediately for re-evaluation Patient is aware that the purpose of this visit was for an acute medical emergency requiring emergent stabilization. Chronic conditions, including malignancies have not been ruled out. Patient is instructed to follow up with PCP as directed and discharge instructions for continued care and workup. If unable to arrange follow-up, patient is to return to the emergency department for reassessment. Patient (parent or legal guardian if applicable) was given verbal and written discharge instructions and acknowledges understanding. Time of 1ST Reevaluation: 11:25 Reevaluation 1ST: Improved Patient Education/Counseling: Diagnosis, Treatment, Prognosis Family Education/Counseling: No Family Present SEPSIS Sepsis Screen Date sepsis recognized/suspect: Dec 24, 2024 Time Sepsis recognized/suspect: 1038 Recent Procedure: No On Antibiotic Therapy: No Respiratory Rate >20: No Heart Rate >90: No Temp<36 C (96.8 F) or >38.3 C: No SBP <90 or MAP <65 mmHG: No New Acute Mental Status Change: No Is the patient on CPAP, BIPAP,: No Vital Signs Date Time Temp Pulse Resp B/P (MAP) Pulse Ox O2 Delivery O2 Flow Rate FiO2 12/24/24 11:59 73 18 97 Room Air 12/24/24 11:59 97.7 73 18 144/76 (98) 97 97.7 12/24/24 10:54 98.2 82 16 145/62 (89) 98 98.2 12/24/24 10:54 78 16 98 Room Air* 0 21 12/24/24 10:38 97.9 77 18 150/72 98 97.9 Departure 1 Departure Time of Disposition: 12:09 Impression: Primary Impression: Medication refill Disposition: HOME / SELF CARE / HOMELESS Condition: Stable e-Prescriptions Pantoprazole Sodium Sesquihydr (Pantoprazole Sodium) 40 Mg Tab 40 MG PO DAILY, #30 TAB Prov: SWETHA CAMARA NP 12/24/24 Discharged With: Self Critical Care Note Critical Care Time?: No Stability Stability form required: No Heart Score Heart Score: Heart Score Response (Comments) Value History N/A 0 EKG N/A 0 Age N/A 0 Risk Factors N/A 0 Troponin N/A 0 Total 0 I personally scribed for SWETHA CAMARA NP ([email or web address]) on 12/24/24 at 10:57. Electronically submitted by Breezy Colindres ([email or web address]). SWETHA CAMARA NP Dec 24, 2024 10:57
[2024-12-24 11:59] VITALS: BP 144/76; PULSE 73; RESP 18; TEMP 97.7; O2SAT 97
[2024-12-24] MEDS ORDERED: PANT40T PO (12:08)
[2024-12-24] MEDS ORDERED: CYAN-17 PO (12:13)
== END 2024-12-24 12:14 | disposition home or self-care (01) ==
LOC: ER 10:36
DX: K29.70 Gastritis, unspecified, without bleeding (principal); Z76.0 Encounter for issue of repeat prescription; Z79.899 Other long term (current) drug therapy; Z87.19 Personal history of other diseases of the digestive system; Z88.0 Allergy status to penicillin